=== PATIENT | female | born 1965 | race Caucasian/White ===

== ENCOUNTER 2016-11-28 12:21 | Inpatient (IN) | payer BC, OTHER ==
[~2016-11-28] VITALS: Ht 170.2 cm; Wt 152.0 kg
[~2016-11-28 12:21] MED LIST: CIPR500T PO; CIPROFLOXACIN HCL PO; HYDR-2766 PO; HYDR12.58 PO; HYDR50TA6 PO; IBUP200T43 PO; METR500T PO; ONDA4TAB10 SL; PARO10TA57 PO; PARO20TA99 PO
--- NOTE | 2016-11-28 12:39 | ED.ADGEN ---
Past History Past Medical History: Depression, GERD, Hypertension, Kidney Infection Past Surgical History: No Surgical History Smoking: Non-smoker Alcohol Use: None Drug Use: None Adult General Chief Complaint Chief Complaint Vomiting, Fever, R lower leg rash, swelling and then today Chest pain HPI HPI Patient is a 51 year old F who presents with Monday night after a walk started to have chills and fever. Took ASA and water then later vomiting 5-6 times, fever Monday too and 1 episode of diarrhea this AM Pt states then this AM noticed shortness of air and "twinge" in L chest. Pain would last 2 min on and off and gone now was 4-5/10 but 0/10 now. Then notices swelling redness R leg, no cough, no abdominal pain, admits to feeling lightheaded Review of Systems Review of Systems Constitutional: yes F/C Eyes: Denies change in visual acuity, redness, or eye pain HENT: Denies nasal congestion or sore throat Respiratory: Denies cough but has been shortness of breath Cardiovascular: chest pain "twinge" GI: Denies abdominal pain, yes vomiting and diarrhea : Denies dysuria or hematuria Musculoskeletal: R lower extremity redness and swelling, rash Neurologic: Denies headache, focal weakness or sensory changes [] Current Medications Current Medications Current Medications Medications (Trade) Dose Ordered Sig/Sonia Start Time Stop Time Status Last Admin Dose Admin Iohexol (Omnipaque 300 Mg/ml) 75 ml 1X ONCE 11/28/16 14:15 11/28/16 14:16 DC 11/28/16 14:35 75 ML Potassium Chloride (Klor-Con) 40 meq 1X ONCE 11/28/16 14:20 11/28/16 14:21 DC 11/28/16 14:20 40 MEQ Sodium Chloride 1,000 ml @ 1,000 mls/hr 1X ONCE 11/28/16 13:15 11/28/16 14:14 DC 11/28/16 13:15 1,000 MLS/HR Vancomycin HCl 1.5 gm/Sodium Chloride 500 ml @ 250 mls/hr 1X ONCE 11/28/16 16:30 11/28/16 18:29 DC 11/28/16 16:30 250 MLS/HR Allergies Allergies Allergies Coded Allergies Type Severity Reaction Last Updated Verified No Known Drug Allergies 12/23/14 No Physical Exam Physical Exam Constitutional: Well developed, well nourished, no acute distress, non-toxic appearance. Obese HENT: Normocephalic, atraumatic, bilateral external ears normal, oropharynx moist, no oral exudates, nose normal. Eyes: PERR EOMI, conjunctiva normal, no discharge Neck: Normal range of motion, no tenderness, supple, no stridor. Cardiovascular:Heart rate regular rhythm, no murmur Lungs & Thorax: Bilateral breath sounds clear to auscultation Abdomen: Bowel sounds normal, soft, no tenderness, no masses, no pulsatile masses. Skin: R lower leg erythema ant and post, with lateral area healing abrasions, neurovascular intact and tenderness to palpation, moderate swelling Back: No tenderness, no CVA tenderness Extremities: No tenderness, no cyanosis, no clubbing, ROM intact, no edema. Neurologic: Alert and oriented X 3, normal motor function, normal sensory function, no focal deficits noted. Current Patient Data Vital Signs Vital Signs Date Time Temp Pulse Resp B/P (MAP) Pulse Ox O2 Delivery O2 Flow Rate FiO2 11/28/16 16:08 88 13 132/75 (94) 96 11/28/16 12:21 98.1 Room Air Lab Results Laboratory Tests Test 11/28/16 13:02 White Blood Count 8.7 x10^3/uL (4.0-11.0) Red Blood Count 5.54 x10^6/uL (3.50-5.40) H Hemoglobin 13.7 g/dL (12.0-15.5) Hematocrit 41.9 % (36.0-47.0) Mean Corpuscular Volume 76 fL (79-100) L Mean Corpuscular Hemoglobin 25 pg (25-35) Mean Corpuscular Hemoglobin Concent 33 g/dL (31-37) Red Cell Distribution Width 17.7 % (11.5-14.5) H Platelet Count 283 x10^3/uL (140-400) Neutrophils (%) (Auto) 67 % (31-73) Lymphocytes (%) (Auto) 21 % (24-48) L Monocytes (%) (Auto) 11 % (0-9) H Eosinophils (%) (Auto) 0 % (0-3) Basophils (%) (Auto) 1 % (0-3) Neutrophils # (Auto) 5.8 x10^3uL (1.8-7.7) Lymphocytes # (Auto) 1.8 x10^3/uL (1.0-4.8) Monocytes # (Auto) 1.0 x10^3/uL (0.0-1.1) Eosinophils # (Auto) 0.0 x10^3/uL (0.0-0.7) Basophils # (Auto) 0.1 x10^3/uL (0.0-0.2) D-Dimer ([place]) 2.58 mg/L (0.00-0.50) H Sodium Level 137 mmol/L (136-145) Potassium Level 2.7 mmol/L (3.5-5.1) *L Chloride Level 100 mmol/L (98-107) Carbon Dioxide Level 29 mmol/L (21-32) Anion Gap 8 (6-14) Blood Urea Nitrogen 13 mg/dL (7-20) Creatinine 0.9 mg/dL (0.6-1.0) Estimated GFR (Cockcroft-Gault) 65.8 BUN/Creatinine Ratio 14 (6-20) Glucose Level 125 mg/dL (70-99) H Lactic Acid Level 1.9 mmol/L (0.4-2.0) Calcium Level 8.7 mg/dL (8.5-10.1) Total Bilirubin 0.3 mg/dL (0.2-1.0) Aspartate Amino Transferase (AST) 16 U/L (15-37) Alanine Aminotransferase (ALT) 12 U/L (14-59) L Alkaline Phosphatase 71 U/L (46-116) Creatine Kinase 128 U/L (26-192) Creatine Kinase MB (Mass) 0.6 ng/mL (0.0-3.6) Creatine Kinase MB Relative Index 0.5 % (0-4) Troponin I Quantitative < 0.017 ng/mL (0-0.055) WY-Ovv-S-Type Natriuretic Peptide 86 pg/mL (0-124) Total Protein 9.0 g/dL (6.4-8.2) H Albumin 3.0 g/dL (3.4-5.0) L Albumin/Globulin Ratio 0.5 (1.0-1.7) L Lipase 140 U/L (73-393) EKG EKG EKG [address] T WAVE CHANGE, NO STEMI, NO ACUTE ISCHEMIA EKG [address] T WAVE ABNORMALITY NO STEMI[] Radiology/Procedures Radiology/Procedures PATIENT: MAGGIE LAZARO ACCOUNT: [id number] : 1965 LOCATION: ER AGE: 51 SEX: F EXAM STATUS: REG ER ORD. PHYSICIAN: MARIA TERESA KAMARA MD REASON: leg pain swelling, elevated Ddimer PROCEDURE: VENOUS LOWER EXT BILATERAL Exam performed: Bilateral lower extremity venous Doppler. Clinical Indication: Elevated d-dimer Date of Service:11/28/16 Comparison : None available Discussion: Multiple longitudinal and transverse high resolution real-time images of the venous system of bilateral lower extremity were obtained with color and Doppler sampling and spectral analysis. The common femoral, superficial femoral, popliteal and proximal calf veins are all patent and demonstrate normal flow and compressibility. Normal respiratory phasicity and augmentation is present. Note is made of a 3.1 cm right groin lymph node Impression: Normal color duplex ultrasound of the venous system of bilateral lower extremity. DICTATED AND SIGNED BY: THAD FOY MD DATE: 11/28/16 1722 CC: RALPH CHOI MD; MARIA TERESA KAMARA MD ~ PATIENT: MAGGIE LAZAOR ACCOUNT: [id number] : 1965 LOCATION: ER AGE: 51 SEX: F EXAM STATUS: REG ER ORD. PHYSICIAN: MARIA TERESA KAMARA MD REASON: chest pain, dyspnea, elevated ddimer r/o PE PROCEDURE: CT ANGIOGRAPHY CHEST Indication: Chest pain, dyspnea and elevated d-dimer. Axial imaging through the chest was performed after the administration of intravenous contrast and utilizing the CT angiography protocol. Multiplanar, 3-D and MIP reformations were also performed. No prior studies are available for comparison. Evaluation of the pulmonary arterial system is without evidence of thromboembolism. No filling defects are seen. The thoracic aorta is normal caliber. No dissection is identified. No pericardial or pleural fluid is identified. Parenchymal evaluation demonstrates some minimal linear scarring or atelectasis in the bases. No infiltrates or masses are seen. The upper abdomen demonstrates fatty infiltration of the liver. Impression: 1. No evidence of pulmonary embolism or thoracic aortic dissection. 2. Fatty infiltration of the liver. PQRS Compliance Statement: One or more of the following individualized dose reduction techniques were utilized for this examination: 1. Automated exposure control 2. Adjustment of the mA and/or kV according to patient size 3. Use of iterative reconstruction technique DICTATED AND SIGNED BY: ANDRZEJ FERNANDO MD DATE: 11/28/16 1444 CC: RALPH CHOI MD; MARIA TERESA KAMARA MD ~ PATIENT: MAGGIE LAZARO ACCOUNT: [id number] : 1965 LOCATION: ER AGE: 51 SEX: F EXAM STATUS: REG ER ORD. PHYSICIAN: MARIA TERESA KAMARA MD REASON: dyspnea PROCEDURE: CHEST AP ONLY Indication: Shortness of air. Time of exam 1303 hours. Correlation is made with prior chest from 12/23/2014. FINDINGS: The heart size is normal. The lungs are clear. No pleural effusion or pneumothorax is identified. The pulmonary vascularity is normal. IMPRESSION: No acute abnormality detected. DICTATED AND SIGNED BY: ANDRZEJ FERNANDO MD DATE: 11/28/16 1318 CC: RALPH CHOI MD; MARIA TERESA KAMARA MD ~ [] Course & Med Decision Making Course & Med Decision Making Pertinent Labs and Imaging studies reviewed. (See chart for details) pT WITH LOWER LEG CELLULITIS AND CHEST PAIN ELEVATED DDIMER CTA==NO PE AND VENOUS DUPLEX NO DVT EKG STABLE AND CARDIAC RISK FACTORS WILL ADMIT FOR CHEST PAIN AND LOWER LEG CELLULITIS STARTED ON iv VANCOMYCIN CALLED HOSPITALIST AND ADMITTED TO MEDICAL SERVICE Final Impression Final Impression 1.CHEST PAIN 2.LOWER EXTREMITY CELLULITIS[] Problems: Dragon Disclaimer Dragon Disclaimer This electronic medical record was generated, in whole or in part, using a voice recognition dictation system. MARIA TERESA KAMARA MD November 28, 2016 12:39
[2016-11-28] MEDS ORDERED: IV NORMAL SALINE 1,000ML 1,000 ML IV ONE (13:15)
[2016-11-28 13:18] LABS: BASO # 0.1 x10^3/uL (0.0-0.2); BASO % 1 % (0-3); EOS % 0 % (0-3); HEMATOCRIT 41.9 % (36.0-47.0); HEMOGLOBIN 13.7 g/dL (12.0-15.5); LYMPH # 1.8 x10^3/uL (1.0-4.8); LYMPH % 21 % (24-48); MEAN CORPUSCULAR HEMOGLOBIN 25 pg (25-35); MEAN CORPUSCULAR HGB CONC 33 g/dL (31-37); MEAN CORPUSCULAR VOLUME 76 fL (79-100); MONO % 11 % (0-9); NEUT # 5.8 x10^3uL (1.8-7.7); NEUT % 67 % (31-73); PLATELET COUNT 283 x10^3/uL (140-400); RED BLOOD COUNT 5.54 x10^6/uL (3.50-5.40); RED CELL DISTRIBUTION WIDTH 17.7 % (11.5-14.5); WHITE BLOOD COUNT 8.7 x10^3/uL (4.0-11.0)
--- NOTE | 2016-11-28 13:21 | RAD ---
Indication: Shortness of air. Time of exam 1303 hours. Correlation is made with prior chest from 12/23/2014. FINDINGS: The heart size is normal. The lungs are clear. No pleural effusion or pneumothorax is identified. The pulmonary vascularity is normal. IMPRESSION: No acute abnormality detected.
--- NOTE | 2016-11-28 13:22 | EKG ---
[address] [address] Test Date: 2016-11-28 Test Time: 13:11:56 Pat Name: MAGGIE LAZARO Department: Room: Gender: F Clock Smith: ADONIS : 1965 Requested By: MARIA TERESA KAMARA Order Number: [id number] Reading MD: Hitesh Dhillon Measurements Intervals [place] Rate: 103 P: 120 AR: 124 QRS: 56 QRSD: 90 T: 34 QT: 348 QTc: 458 Interpretive Statements SINUS TACHYCARDIA Electronically Signed On 12-05-2016 8:57:54 CDT by Hitesh Dhillon
[2016-11-28 13:39] LABS: ALBUMIN/GLOBULIN RATIO 0.5 (1.0-1.7); CALCIUM 8.7 mg/dL (8.5-10.1); CREATININE 0.9 mg/dL (0.6-1.0); GFR 65.8; TOTAL BILIRUBIN 0.3 mg/dL (0.2-1.0)
[2016-11-28 13:42] LABS: POTASSIUM 2.7 mmol/L (3.5-5.1)
[2016-11-28] MEDS ORDERED: IOHEXOL 300 MG/ML 75 ML VIAL. IV ONE (14:15)
[2016-11-28] MEDS ORDERED: POTASSIUM CHLORIDE 20 MEQ TABLET.ER. PO ONE (14:20)
--- NOTE | 2016-11-28 14:51 | RAD ---
Indication: Chest pain, dyspnea and elevated d-dimer. Axial imaging through the chest was performed after the administration of intravenous contrast and utilizing the CT angiography protocol. Multiplanar, 3-D and MIP reformations were also performed. No prior studies are available for comparison. Evaluation of the pulmonary arterial system is without evidence of thromboembolism. No filling defects are seen. The thoracic aorta is normal caliber. No dissection is identified. No pericardial or pleural fluid is identified. Parenchymal evaluation demonstrates some minimal linear scarring or atelectasis in the bases. No infiltrates or masses are seen. The upper abdomen demonstrates fatty infiltration of the liver. Impression: 1. No evidence of pulmonary embolism or thoracic aortic dissection. 2. Fatty infiltration of the liver. PQRS Compliance Statement: One or more of the following individualized dose reduction techniques were utilized for this examination: 1. Automated exposure control 2. Adjustment of the mA and/or kV according to patient size 3. Use of iterative reconstruction technique
[2016-11-28] MEDS ORDERED: VANCOMYCIN 1.5 GM in IV NORMAL SALINE 500ML 500 ML IV ONE (16:30)
--- NOTE | 2016-11-28 17:25 | RAD ---
Exam performed: Bilateral lower extremity venous Doppler. Clinical Indication: Elevated d-dimer Date of Service:11/28/16 Comparison : None available Discussion: Multiple longitudinal and transverse high resolution real-time images of the venous system of bilateral lower extremity were obtained with color and Doppler sampling and spectral analysis. The common femoral, superficial femoral, popliteal and proximal calf veins are all patent and demonstrate normal flow and compressibility. Normal respiratory phasicity and augmentation is present. Note is made of a 3.1 cm right groin lymph node Impression: Normal color duplex ultrasound of the venous system of bilateral lower extremity.
[2016-11-28 22:14] VITALS: BP 131/86
[2016-11-28] MEDS: VANCOMYCIN PER PHARMACY MC PRN (22:17)
[2016-11-28] MEDS: ZOLPIDEM 5 MG TABLET. PO PRN (22:29)
[2016-11-28] MEDS ORDERED: ENOXAPARIN 40 MG/0.4 ML DISP.SYRIN. SQ SCH (22:30)
[2016-11-28] MEDS: POTASSIUM CHLORIDE 20 MEQ TABLET.ER. PO SCH (22:30)
[2016-11-28 22:31] VITALS: BP 131/86
[2016-11-28] MEDS ORDERED: FAMO-63 PO (23:19)
[2016-11-28] MEDS ORDERED: HYDR12.58 PO (23:19)
[2016-11-29] MEDS: VANCOMYCIN 2 GM in IV NORMAL SALINE 500ML 500 ML IV SCH ×2 (03:27→16:06)
[2016-11-29 04:17] LABS: BASO % 1 % (0-3); EOS # 0.1 x10^3/uL (0.0-0.7); EOS % 1 % (0-3); HEMATOCRIT 38.6 % (36.0-47.0); HEMOGLOBIN 12.4 g/dL (12.0-15.5); LYMPH # 2.1 x10^3/uL (1.0-4.8); LYMPH % 31 % (24-48); MEAN CORPUSCULAR HEMOGLOBIN 24 pg (25-35); MEAN CORPUSCULAR HGB CONC 32 g/dL (31-37); MEAN CORPUSCULAR VOLUME 76 fL (79-100); MONO # 0.6 x10^3/uL (0.0-1.1); MONO % 9 % (0-9); NEUT # 3.9 x10^3uL (1.8-7.7); NEUT % 57 % (31-73); PLATELET COUNT 274 x10^3/uL (140-400); RED BLOOD COUNT 5.08 x10^6/uL (3.50-5.40); RED CELL DISTRIBUTION WIDTH 17.3 % (11.5-14.5); WHITE BLOOD COUNT 6.8 x10^3/uL (4.0-11.0)
[2016-11-29 04:40] LABS: ALBUMIN 2.6 g/dL (3.4-5.0); ALBUMIN/GLOBULIN RATIO 0.5 (1.0-1.7); CALCIUM 8.3 mg/dL (8.5-10.1); CREATININE 0.8 mg/dL (0.6-1.0); GFR 75.3; POTASSIUM 3.3 mmol/L (3.5-5.1); TOTAL BILIRUBIN 0.3 mg/dL (0.2-1.0); TOTAL PROTEIN 7.9 g/dL (6.4-8.2)
[2016-11-29 05:10] VITALS: BP 113/76
[2016-11-29] MEDS: POTASSIUM CHLORIDE 20 MEQ TABLET.ER. PO SCH ×2 (08:15→20:59)
--- NOTE | 2016-11-29 10:06 | PDOC2 ---
DONNA LANG RN HEART 11/29/16 1006: CONSULT Date of Admission DATE: 11/29/16 TIME: 10:05 Reason for Consult: cp Problem List Problems Medical Problems: (1) Cellulitis of lower leg Status: Acute (2) Chest pain Status: Acute History of Present Illness Ms Le is a 51 year old female without significant medical history that presents with complaints of chest pain. She reports that she was working in the heat and began to have chest pain in her left upper chest. She describes a shooting type pain that lasted about 10 minutes and was accompanied by diaphoresis, shortness of breath and nausea. She denies any prior symptoms and has been pain free since admission. She denies other complaints and denies problems with her functional capacity. Past Medical History depression, hypertension, diverticulitis, GERD, pyelonephritis Past Surgical History: Tonsillectomy Family History CAD, hypertension, diabetes mellitus Social History non smoker, no significant ETOH, no illicit drugs. works for [employer] in [place]. Current Medications Current Medications Sodium Chloride 1,000 ml @ 1,000 mls/hr 1X ONCE IV Last administered on 13:15; Start 11/28/16 at 13:15; Stop 11/28/16 at 14:14; Status DC Potassium Chloride (Klor-Con) 40 meq 1X ONCE PO Last administered on 11/28/16 14:20; Start 11/28/16 at 14:20; Stop 11/28/16 at 14:21; Status DC Iohexol (Omnipaque 300 Mg/ml) 75 ml 1X ONCE IV Last administered on 11/28/16 14:35; Start 11/28/16 at 14:15; Stop 11/28/16 at 14:16; Status DC Vancomycin HCl 1.5 gm/Sodium Chloride 500 ml @ 250 mls/hr 1X ONCE IV Last administered on 11/28/16 16:30; Start 11/28/16 at 16:30; Stop 11/28/16 at 18:29; Status DC Vancomycin HCl (Vanco Per Pharmacy) 1 each PRN DAILY PRN MC SEE COMMENTS Last administered on 11/28/16 22:17; Start 11/28/16 at 21:30 Enoxaparin Sodium (Lovenox) 40 mg Q24H SQ Last administered on 11/28/16 22:30; Start 11/28/16 at 22:30 Potassium Chloride (Klor-Con) 20 meq BID PO Last administered on 11/29/16 08:15 ; Start 11/28/16 at 22:15 Zolpidem Tartrate (Ambien) 5 mg PRN QHS PRN PO INSOMNIA Last administered on 22:29; Start 11/28/16 at 21:30 Vancomycin HCl 2 gm/Sodium Chloride 500 ml @ 250 mls/hr Q12H IV Last administered on 11/29/16 03:27; Start 11/29/16 at 04:00 Vancomycin HCl 1 each 1X ONCE MC ; Start 11/30/16 at 03:30; Stop 11/30/16 at 03 :31 Famotidine (Pepcid) 20 mg BID PO ; Start 11/29/16 at 10:00 Hydrochlorothiazide (Microzide) 12.5 mg DAILY PO ; Start 11/29/16 at 10:00 Potassium Chloride (Micro-K) 10 meq DAILYWBKFT PO ; Start 11/29/16 at 10:00 Active Scripts Active Reported Pepcid (Famotidine) 20 Mg Tablet 20 Mg PO BID Hydrochlorothiazide Tablet (Hydrochlorothiazide) 12.5 Mg Tablet 12.5 Mg PO DAILY Allergies: Coded Allergies: No Known Drug Allergies (Unverified , 12/23/14) Review of System as per HPI General: Alert, Oriented X3, Cooperative, No acute distress HEENT: Atraumatic, EOMI, Mucous membr. moist/pink Lungs: Clear to auscultation, Normal air movement Heart: Regular rate, Normal S1, Normal S2, Other (no obvious murmurs, no gallops, clicks or rubs) Abdomen: Normal bowel sounds, Soft, No tenderness Extremities: No clubbing, No cyanosis, Normal pulses, Other (+1 edema) Neuro: Normal speech, Strength at 5/5 X4 ext Psych/Mental Status: Mental status NL, Mood NL VITALS Vital Signs Date Time Temp Pulse Resp B/P (MAP) Pulse Ox O2 Delivery O2 Flow Rate FiO2 11/29/16 08:00 Room Air 11/29/16 05:10 98.2 81 20 113/76 (88) 93 Labs Laboratory Tests Test 11/28/16 13:02 11/28/16 21:41 5/9/17 03:40 White Blood Count 8.7 x10^3/uL (4.0-11.0) 6.8 x10^3/uL (4.0-11.0) Red Blood Count 5.54 x10^6/uL (3.50-5.40) 5.08 x10^6/uL (3.50-5.40) Hemoglobin 13.7 g/dL (12.0-15.5) 12.4 g/dL (12.0-15.5) Hematocrit 41.9 % (36.0-47.0) 38.6 % (36.0-47.0) Mean Corpuscular Volume 76 fL (79-100) 76 fL (79-100) Mean Corpuscular Hemoglobin 25 pg (25-35) 24 pg (25-35) Mean Corpuscular Hemoglobin Concent 33 g/dL (31-37) 32 g/dL (31-37) Red Cell Distribution Width 17.7 % (11.5-14.5) 17.3 % (11.5-14.5) Platelet Count 283 x10^3/uL (140-400) 274 x10^3/uL (140-400) Neutrophils (%) (Auto) 67 % (31-73) 57 % (31-73) Lymphocytes (%) (Auto) 21 % (24-48) 31 % (24-48) Monocytes (%) (Auto) 11 % (0-9) 9 % (0-9) Eosinophils (%) (Auto) 0 % (0-3) 1 % (0-3) Basophils (%) (Auto) 1 % (0-3) 1 % (0-3) Neutrophils # (Auto) 5.8 x10^3uL (1.8-7.7) 3.9 x10^3uL (1.8-7.7) Lymphocytes # (Auto) 1.8 x10^3/uL (1.0-4.8) 2.1 x10^3/uL (1.0-4.8) Monocytes # (Auto) 1.0 x10^3/uL (0.0-1.1) 0.6 x10^3/uL (0.0-1.1) Eosinophils # (Auto) 0.0 x10^3/uL (0.0-0.7) 0.1 x10^3/uL (0.0-0.7) Basophils # (Auto) 0.1 x10^3/uL (0.0-0.2) 0.0 x10^3/uL (0.0-0.2) D-Dimer ([place]) 2.58 mg/L (0.00-0.50) Sodium Level 137 mmol/L (136-145) 139 mmol/L (136-145) Potassium Level 2.7 mmol/L (3.5-5.1) 3.3 mmol/L (3.5-5.1) Chloride Level 100 mmol/L (98-107) 104 mmol/L (98-107) Carbon Dioxide Level 29 mmol/L (21-32) 25 mmol/L (21-32) Anion Gap 8 (6-14) 10 (6-14) Blood Urea Nitrogen 13 mg/dL (7-20) 12 mg/dL (7-20) Creatinine 0.9 mg/dL (0.6-1.0) 0.8 mg/dL (0.6-1.0) Estimated GFR (Cockcroft-Gault) 65.8 75.3 BUN/Creatinine Ratio 14 (6-20) 15 (6-20) Glucose Level 125 mg/dL (70-99) 115 mg/dL (70-99) Lactic Acid Level 1.9 mmol/L (0.4-2.0) Calcium Level 8.7 mg/dL (8.5-10.1) 8.3 mg/dL (8.5-10.1) Total Bilirubin 0.3 mg/dL (0.2-1.0) 0.3 mg/dL (0.2-1.0) Aspartate Amino Transf (AST/SGOT) 16 U/L (15-37) 16 U/L (15-37) Alanine Aminotransferase (ALT/SGPT) 12 U/L (14-59) 12 U/L (14-59) Alkaline Phosphatase 71 U/L (46-116) 61 U/L (46-116) Creatine Kinase 128 U/L (26-192) Creatine Kinase MB (Mass) 0.6 ng/mL (0.0-3.6) Creatine Kinase MB Relative Index 0.5 % (0-4) Troponin I Quantitative < 0.017 ng/mL (0-0.055) < 0.017 ng/mL (0-0.055) < 0.017 ng/mL (0-0.055) KO-Kle-P-Type Natriuretic Peptide 86 pg/mL (0-124) Total Protein 9.0 g/dL (6.4-8.2) 7.9 g/dL (6.4-8.2) Albumin 3.0 g/dL (3.4-5.0) 2.6 g/dL (3.4-5.0) Albumin/Globulin Ratio 0.5 (1.0-1.7) 0.5 (1.0-1.7) Lipase 140 U/L (73-393) Images EKG - sinus rhythm, delayed R progression, non specific t abn. Lower extremity US - Impression: Normal color duplex ultrasound of the venous system of bilateral lower extremity. CT- Impression: 1. No evidence of pulmonary embolism or thoracic aortic dissection. 2. Fatty infiltration of the liver. CXR - IMPRESSION: No acute abnormality detected. Assessment/Plan Chest pain - WA ruled out. Will check echocardiogram. If no acute abnormalities could discharge from CV standpoint and have MPI as an outpatient. Hypertension - controlled. Hypokalemia - replaced, per PCP + D dimer - CT neg for PE, Negative DVT sono. Problems: JORGE FUNEZ MD 11/29/16 1345: CONSULT Allergies: Coded Allergies: No Known Drug Allergies (Unverified , 12/23/14) Assessment/Plan Patient seen and examined. Agree with [employer]ICATION[employer] MANAGER's assessment and plan. CP with atypical features. WA ruled out. We will obtain 2D echo to assess LV function and rule out wall motion abnormalities Thank you for your consultation Problems: DONNA LANG APRN November 29, 2016 10:06 JORGE FUNEZ MD November 29, 2016 13:45
[2016-11-29 10:19] VITALS: BP 148/79
[2016-11-29] MEDS: POTASSIUM CHLORIDE 10 MEQ CAPSULE.ER. PO SCH (10:24)
[2016-11-29] MEDS: hydroCHLOROthiazide 12.5 MG CAPSULE PO SCH (10:24)
[2016-11-29] MEDS: FAMOTIDINE 20 MG TABLET PO SCH ×2 (10:25→20:59)
--- NOTE | 2016-11-29 14:32 | CARD ---
APPROVED REPORT EXAM: Two-dimensional and M-mode echocardiogram with Doppler and color Doppler. Other Information Quality : GoodHR: 88bpm Rhythm : NSR INDICATION Chest Pain RISK FACTORS Obesity LEFT VENTRICLE The left ventricle is normal size. There is normal left ventricular wall thickness. The left ventricu lar systolic function is normal. The Ejection Fraction is 60-65%. There is normal LV segmental wall m otion. Transmitral Doppler flow pattern is Grade I-abnormal relaxation pattern. RIGHT VENTRICLE The right ventricle is normal size. There is normal right ventricular wall thickness. The right ventr icular systolic function is normal. ATRIA The left atrium size is normal. The right atrium size is normal. The interatrial septum is intact wit h no evidence for an atrial septal defect or patent foramen ovale as noted on 2-D or Doppler imaging. AORTIC VALVE The aortic valve is not well visualized but appears to be mildly thickened and opens well. Doppler an d Color Flow revealed no significant aortic regurgitation. There is no significant aortic valvular st enosis. MITRAL VALVE There is no evidence of mitral valve prolapse. There is no mitral valve stenosis. Doppler and Color F low revealed no mitral valve regurgitation noted. TRICUSPID VALVE Doppler and Color Flow revealed trace tricuspid valve regurgitation. There is no tricuspid valve sten osis. PULMONIC VALVE Doppler and Color Flow revealed trace pulmonic valvular regurgitation. There is no pulmonic valvular stenosis. GREAT VESSELS The aortic root is normal in size. The ascending aorta is normal in size. The pulmonary artery is nor mal. The IVC is normal in size and collapses >50% with inspiration. PERICARDIAL EFFUSION There is no evidence of significant pericardial effusion. Critical Notification Critical Value: No <Conclusion> The left ventricular systolic function is normal. The Ejection Fraction is 60-65%. There is normal LV segmental wall motion. Transmitral Doppler flow pattern is Grade I-abnormal relaxation pattern. Doppler and Color Flow revealed trace tricuspid valve regurgitation. There is no evidence of significant pericardial effusion.
--- NOTE | 2016-11-29 15:05 | RAD ---
Indication: PICC line placement. Time of exam 1453 hours. Correlation is made with prior study from 1 day earlier. Right upper extremity PICC line has the tip overlying the upper right atrium. No pneumothorax is identified. The lungs are clear. Impression: PICC line placement, as described.
[2016-11-29 15:21] VITALS: BP 129/82
[2016-11-29 18:44] VITALS: BP 144/86
[2016-11-29] MEDS: ENOXAPARIN ** NOTE DOSE ** SYRINGE SQ SCH (20:59)
[2016-11-29] MEDS: ZOLPIDEM 5 MG TABLET. PO PRN (22:22)
--- NOTE | 2016-11-30 00:56 | HP ---
ADMIT DATE: 11/28/2016 HISTORY OF PRESENT ILLNESS: A 51-year-old female came in through the Emergency Room. The patient with heavy infection to her right lower leg. For last 2-3 days, the patient has been having fever and chills. She related this infection to her right lower leg, ____ home. She also developed some nausea, vomiting, diarrhea, and also had some chest discomfort as well, which was substernal twinge in her chest. As a result of all this, the patient was seen in the Emergency Room and was admitted to the hospital for several reasons and for cellulitis to the right lower leg, which took pretty much the entire tibia area as well as her chest pain as well as some of her nausea, vomiting, ____ as well. PAST MEDICAL HISTORY: Depression, GERD, hypertension, multiple kidney infections. She has had a history of hypertension, diverticulitis, pyelonephritis. SOCIAL HISTORY: The patient denies smoking, alcohol, or drug use. FAMILY HISTORY: Unremarkable. PAST SURGICAL HISTORY: She has had a tonsillectomy. She has also had a history of MRSA. FAMILY HISTORY: Cardiovascular disease in father and mother as well as hypertension and diabetes. ALLERGIES: No known drug allergies. HOME MEDICATIONS: Pepcid 20 mg a day, hydrochlorothiazide 12.5 mg daily. REVIEW OF SYSTEMS: The patient denies any headaches, visual changes, blurred vision, double vision. Does have this chest twinging. Denies shortness of breath, did have fever and chills; however, ____. The patient denies any abdominal pain presently. Did have some nausea and vomiting. Otherwise, unremarkable. PHYSICAL EXAMINATION: GENERAL: This is a very pleasant white female in no apparent distress. VITAL SIGNS: Blood pressure initially 150/90, respiratory rate 20, pulse 110, afebrile. HEENT: The patient's head was atraumatic, normocephalic. Eyes: PERRLA without jaundice. Mouth and throat were normal. NECK: Supple. LUNGS: Clear to auscultation. CARDIOVASCULAR: Regular sinus rhythm. ABDOMEN: Protuberant, soft, nontender. The right lower leg is markedly erythematous. EXTREMITIES: It is noted from just below the knee to above the ankle area approximately [address] the right lower leg, tenderness, warmth, and ____. Pulses noted distally. NEUROLOGIC: Alert and oriented x 3. LABORATORY DATA: The patient's white count 8, hemoglobin 13 and hematocrit 41. Chemistries demonstrate very low potassium of 2.7 as well as a BUN and creatinine 13 and 0.9, blood sugar of 125. Lactic acid was unremarkable. Cardiac enzymes were unremarkable. Albumin 3.0. Blood sugar 125. The patient's D-dimer was elevated at 2.58 and MRSA scan was negative. IMPRESSION: 1. Cellulitis to the right lower leg. 2. Hyperglycemia. 3. Chest pain. 4. Risk factors for heart disease include family history, history of hypertension. PLAN: The patient will be admitted, placed on IV vancomycin. Cardiac evaluation and echocardiogram, and further consultation with the controls operator molded goods. RALPH CHOI MD DR: WILLARD/mu JOB#: [id number] / [id number]
[2016-11-30] MEDS: VANCOMYCIN 2 GM in IV NORMAL SALINE 500ML 500 ML IV SCH ×2 (04:20→13:46)
[2016-11-30 04:24] LABS: VANC TR 13.8 mcg/mL (10.0-20.0)
[2016-11-30 05:04] VITALS: BP 131/84
[2016-11-30] MEDS: VANCOMYCIN PER PHARMACY MC PRN (07:36)
[2016-11-30] MEDS: POTASSIUM CHLORIDE 10 MEQ CAPSULE.ER. PO SCH (08:00)
[2016-11-30] MEDS: POTASSIUM CHLORIDE 20 MEQ TABLET.ER. PO SCH (09:21)
[2016-11-30] MEDS: ENOXAPARIN ** NOTE DOSE ** SYRINGE SQ SCH (09:21)
[2016-11-30] MEDS: FAMOTIDINE 20 MG TABLET PO SCH (09:21)
[2016-11-30] MEDS: hydroCHLOROthiazide 12.5 MG CAPSULE PO SCH (09:21)
[2016-11-30 10:40] VITALS: BP 124/85
--- NOTE | 2016-11-30 10:52 | PDOC ---
PROGRESS NOTES Diagnosis Problem Problems Medical Problems: (1) Cellulitis of lower leg Status: Acute (2) Chest pain Status: Acute Assessment Problems Medical Problems: (1) Cellulitis of lower leg Status: Acute (2) Chest pain Status: Acute Chest pain - DE ruled out. Echo with normal LVEF and wall motion. Outpatient follow up and MPI if reoccurrence. Hypertension - controlled. Hypokalemia - replaced, per PCP + D dimer - CT neg for PE, Negative DVT sono. Problems: Subjective no further chest discomfort, palpitations, dyspnea. would like to go home. Objective Vital Signs Date Time Temp Pulse Resp B/P (MAP) Pulse Ox O2 Delivery O2 Flow Rate FiO2 11/30/16 10:40 97.4 84 20 124/85 (98) 94 Room Air Intake and Output 11/30/16 07:00 Intake Total 1890.55 ml Balance 1890.55 ml Intake Oral 1340 ml IV Total 550.55 ml # Voids 4 Abdomen: Normal bowel sounds, Soft, No tenderness Heart: Regular rate, Normal S1, Normal S2, Other (no gallops, clicks or rubs, no significant murmurs) Extremities: No cyanosis, Normal pulses General: Alert, Oriented X3, Cooperative, No acute distress HEENT: Atraumatic, EOMI, Mucous membr. moist/pink Lungs: Clear to auscultation, Normal air movement Neuro: Normal speech, Strength at 5/5 X4 ext Psych/Mental Status: Mental status NL, Mood NL Review of Relevant I have reviewed the following items zoie (where applicable) has been applied. Labs Laboratory Tests Test 11/28/16 13:02 11/28/16 21:41 11/28/16 22:00 11/29/16 03:40 White Blood Count 8.7 x10^3/uL (4.0-11.0) 6.8 x10^3/uL (4.0-11.0) Red Blood Count 5.54 x10^6/uL (3.50-5.40) 5.08 x10^6/uL (3.50-5.40) Hemoglobin 13.7 g/dL (12.0-15.5) 12.4 g/dL (12.0-15.5) Hematocrit 41.9 % (36.0-47.0) 38.6 % (36.0-47.0) Mean Corpuscular Volume 76 fL (79-100) 76 fL (79-100) Mean Corpuscular Hemoglobin 25 pg (25-35) 24 pg (25-35) Mean Corpuscular Hemoglobin Concent 33 g/dL (31-37) 32 g/dL (31-37) Red Cell Distribution Width 17.7 % (11.5-14.5) 17.3 % (11.5-14.5) Platelet Count 283 x10^3/uL (140-400) 274 x10^3/uL (140-400) Neutrophils (%) (Auto) 67 % (31-73) 57 % (31-73) Lymphocytes (%) (Auto) 21 % (24-48) 31 % (24-48) Monocytes (%) (Auto) 11 % (0-9) 9 % (0-9) Eosinophils (%) (Auto) 0 % (0-3) 1 % (0-3) Basophils (%) (Auto) 1 % (0-3) 1 % (0-3) Neutrophils # (Auto) 5.8 x10^3uL (1.8-7.7) 3.9 x10^3uL (1.8-7.7) Lymphocytes # (Auto) 1.8 x10^3/uL (1.0-4.8) 2.1 x10^3/uL (1.0-4.8) Monocytes # (Auto) 1.0 x10^3/uL (0.0-1.1) 0.6 x10^3/uL (0.0-1.1) Eosinophils # (Auto) 0.0 x10^3/uL (0.0-0.7) 0.1 x10^3/uL (0.0-0.7) Basophils # (Auto) 0.1 x10^3/uL (0.0-0.2) 0.0 x10^3/uL (0.0-0.2) D-Dimer ([place]) 2.58 mg/L (0.00-0.50) Sodium Level 137 mmol/L (136-145) 139 mmol/L (136-145) Potassium Level 2.7 mmol/L (3.5-5.1) 3.3 mmol/L (3.5-5.1) Chloride Level 100 mmol/L (98-107) 104 mmol/L (98-107) Carbon Dioxide Level 29 mmol/L (21-32) 25 mmol/L (21-32) Anion Gap 8 (6-14) 10 (6-14) Blood Urea Nitrogen 13 mg/dL (7-20) 12 mg/dL (7-20) Creatinine 0.9 mg/dL (0.6-1.0) 0.8 mg/dL (0.6-1.0) Estimated GFR (Cockcroft-Gault) 65.8 75.3 BUN/Creatinine Ratio 14 (6-20) 15 (6-20) Glucose Level 125 mg/dL (70-99) 115 mg/dL (70-99) Lactic Acid Level 1.9 mmol/L (0.4-2.0) Calcium Level 8.7 mg/dL (8.5-10.1) 8.3 mg/dL (8.5-10.1) Total Bilirubin 0.3 mg/dL (0.2-1.0) 0.3 mg/dL (0.2-1.0) Aspartate Amino Transf (AST/SGOT) 16 U/L (15-37) 16 U/L (15-37) Alanine Aminotransferase (ALT/SGPT) 12 U/L (14-59) 12 U/L (14-59) Alkaline Phosphatase 71 U/L (46-116) 61 U/L (46-116) Creatine Kinase 128 U/L (26-192) Creatine Kinase MB (Mass) 0.6 ng/mL (0.0-3.6) Creatine Kinase MB Relative Index 0.5 % (0-4) Troponin I Quantitative < 0.017 ng/mL (0-0.055) < 0.017 ng/mL (0-0.055) < 0.017 ng/mL (0-0.055) LH-Bxv-G-Type Natriuretic Peptide 86 pg/mL (0-124) Total Protein 9.0 g/dL (6.4-8.2) 7.9 g/dL (6.4-8.2) Albumin 3.0 g/dL (3.4-5.0) 2.6 g/dL (3.4-5.0) Albumin/Globulin Ratio 0.5 (1.0-1.7) 0.5 (1.0-1.7) Lipase 140 U/L (73-393) Nasal Screen MRSA (PCR) Negative (Negative) Hemoglobin A1c 6.0 % (4.8-5.6) Test 11/30/16 03:35 Vancomycin Level Trough 13.8 mcg/mL (10.0-20.0) Vancomycin Last Dose Date 11/29/2016 Vancomycin Last Dose Time 1600 Microbiology 11/28/16 Blood Culture - Preliminary, Resulted NO GROWTH AFTER 1 DAY Medications Current Medications Sodium Chloride 1,000 ml @ 1,000 mls/hr 1X ONCE IV Last administered on 13:15; Start 11/28/16 at 13:15; Stop 11/28/16 at 14:14; Status DC Potassium Chloride (Klor-Con) 40 meq 1X ONCE PO Last administered on 11/28/16 14:20; Start 11/28/16 at 14:20; Stop 11/28/16 at 14:21; Status DC Iohexol (Omnipaque 300 Mg/ml) 75 ml 1X ONCE IV Last administered on 11/28/16 14:35; Start 11/28/16 at 14:15; Stop 11/28/16 at 14:16; Status DC Vancomycin HCl 1.5 gm/Sodium Chloride 500 ml @ 250 mls/hr 1X ONCE IV Last administered on 11/28/16 16:30; Start 11/28/16 at 16:30; Stop 11/28/16 at 18:29; Status DC Vancomycin HCl (Vanco Per Pharmacy) 1 each PRN DAILY PRN MC SEE COMMENTS Last administered on 11/30/16 07:36; Start 11/28/16 at 21:30 Enoxaparin Sodium (Lovenox) 40 mg Q24H SQ Last administered on 11/28/16 22:30; Start 11/28/16 at 22:30; Stop 11/29/16 at 16:21; Status DC Potassium Chloride (Klor-Con) 20 meq BID PO Last administered on 11/30/16 09: 21; Start 11/28/16 at 22:15 Zolpidem Tartrate (Ambien) 5 mg PRN QHS PRN PO INSOMNIA Last administered on 22:22; Start 11/28/16 at 21:30 Vancomycin HCl 2 gm/Sodium Chloride 500 ml @ 250 mls/hr Q12H IV Last administered on 11/30/16 04:20; Start 11/29/16 at 04:00 Vancomycin HCl 1 each 1X ONCE MC Last administered on 11/30/16 03:24; Start 11/30/16 at 03:30; Stop 11/30/16 at 03:31; Status DC Famotidine (Pepcid) 20 mg BID PO Last administered on 11/30/16 09:21; Start at 10:00 Hydrochlorothiazide (Microzide) 12.5 mg DAILY PO Last administered on 09:21; Start 11/29/16 at 10:00 Potassium Chloride (Micro-K) 10 meq DAILYWBKFT PO Last administered on 10:24; Start 11/29/16 at 10:00 Enoxaparin Sodium (Lovenox 60mg Syringe) 60 mg Q12HR SQ Last administered on 09:21; Start 11/29/16 at 21:00 Vancomycin HCl 1 each 1X ONCE MC ; Start 12/02/16 at 03:30; Stop 12/02/16 at 03 :31 Active Scripts Active Reported Pepcid (Famotidine) 20 Mg Tablet 20 Mg PO BID Hydrochlorothiazide Tablet (Hydrochlorothiazide) 12.5 Mg Tablet 12.5 Mg PO DAILY Vitals/I & O Vital Sign - Last 24 Hours 11/29/16 11/29/16 11/30/16 11/30/16 15:21 18:44 05:04 07:50 Temp 97.7 98.7 98.3 Pulse 84 94 80 Resp 20 20 18 B/P (MAP) 129/82 (98) 144/86 (105) 131/84 (100) Pulse Ox 98 96 94 O2 Delivery Room Air Room Air Room Air Room Air 11/30/16 10:40 Temp 97.4 Pulse 84 Resp 20 B/P (MAP) 124/85 (98) Pulse Ox 94 O2 Delivery Room Air Intake and Output 11/29/16 11/29/16 11/30/16 15:00 23:00 07:00 Intake Total 600 ml 1090.55 ml 200 ml Balance 600 ml 1090.55 ml 200 ml DONNA LANG CINDER [employer] OPERATOR November 30, 2016 10:52
[2016-11-30] MEDS ORDERED: POTA20TA4 PO (13:23)
[2016-11-30] MEDS ORDERED: VANC1PLA9 IV (13:26)
[2016-11-30 16:20] VITALS: BP 131/84
--- NOTE | 2016-11-30 22:30 | DS ---
DATE OF DISCHARGE: 11/30/2016 HOSPITAL COURSE: A 51-year-old female initially came in with severe fever and chills for the last 2-3 days prior to admission. She developed cellulitis to her right lower leg. She also developed some nausea, vomiting and diarrhea, which resolved pretty much easily but the patient did have cellulitis to her right lower leg. She also had extremely low potassium of 2.7. Clinically, she probably had SIRS going on and secondary to the cellulitis in her leg. The patient made good progress during the rest of her hospitalization and there were no complications during rest of her hospital stay. She did have a positive D-dimer, which turned out to be negative as far as V/Q scan goes. Her CTA was unremarkable. She had no evidence of pulmonary emboli. She had some mild atelectasis in her lungs. The patient's venous Dopplers were negative. She had a PICC line placed. She will continue with IV antibiotic as an outpatient. She did have a 3.1 cm right groin lymph node, otherwise normal venous Doppler that is probably related to the infection in the right leg. IMPRESSION: Cellulitis to the right lower leg, nausea, vomiting, lymphadenopathy, hyperglycemia, hypokalemia, [id number] protein malnutrition, elevated D-dimer, negative CTA and possible atelectasis. DISCHARGE RECOMMENDATIONS: The patient will continue to be monitored as an outpatient by pharmacy for the vancomycin, which will go for at least another week if not longer depending on results at the end of that 7 days. Otherwise, see MRAD, decrease activity, regular diet, rest the leg and she will return to clinic for followup in 7-10 days or sooner as needed. RALPH CHOI MD DR: WILLARD/mu JOB#: [id number] / [id number]
== END 2016-11-30 16:26 | disposition home or self-care (01) | DRG 603 ==
LOC: ER 12:21 → 1 SOUTH 18:53
PROVIDERS: ADMIT Family Medicine; ATTEND Family Medicine
DX: L03.115 Cellulitis of right lower limb (principal); E44.0 Moderate protein-calorie malnutrition; R65.10 Systemic inflammatory response syndrome (SIRS) of non-infectious origin without acute organ dysfunction; J98.11 Atelectasis; Z68.43 Body mass index [BMI] 50.0-59.9, adult; K21.9 Gastro-esophageal reflux disease without esophagitis; I10 Essential (primary) hypertension; E87.6 Hypokalemia; K76.0 Fatty (change of) liver, not elsewhere classified; F32.9 Major depressive disorder, single episode, unspecified; R11.2 Nausea with vomiting, unspecified; R19.7 Diarrhea, unspecified; R59.1 Generalized enlarged lymph nodes; R73.9 Hyperglycemia, unspecified; R07.89 Other chest pain; Z82.49 Family history of ischemic heart disease and other diseases of the circulatory system; Z83.3 Family history of diabetes mellitus; Z86.14 Personal history of Methicillin resistant Staphylococcus aureus infection
CPT/HCPCS: 36415; 36569; 71010; 71275; 80053; 80202; 82553; 83036; 83605; 83690; 83880; 84484; 85027; 85379; 87040; 87641; 93005; 93306; 93970; 96361; 96365; 96366; G0379; J1650; J3370; J7040; Q9967; 99285-25; J7030

== ENCOUNTER 2020-06-22 03:02 | Inpatient (IN) | payer OTHER ==
[~2020-06-22] VITALS: Ht 167.6 cm; Wt 131.5 kg
[~2020-06-22 03:02] MED LIST changes: +FAMO-63 PO; -HYDR-2766 PO; +HYDR-2769 PO; -IBUP200T43 PO; +IBUP200T44 PO; +POTA20TA4 PO; +VANC1PLA9 IV
--- NOTE | 2020-06-22 03:06 | PHYS DOC ---
Past History Past Medical History: Arthritis, Depression, DVT, GERD, Hypertension, Kidney Infection, MRSA, UTI Past Medical History MRSA, Chonic Lt Leg venous stasis and ulcer Past Surgical History: Tonsillectomy Smoking: Non-smoker Alcohol Use: None Drug Use: None General Adult HPI: HPI: ".. .I ve been sick last three or so days...fever, chills, ... I got this bad Rt. flank pain...and chest area pain.. nauseated.. 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 Patient has past medical history depression, GERD, hypertension, multiple urinary tract infections, hypertension, diverticulitis, pyelonephritis, cellulitis recurrent in left lower leg, venous stasis, MRSA, and morbid obesity. The pt.has had Flu vaccination this year. Pt. follows with Dr. Choi. Review of Systems: Review of Systems: Constitutional: Hx fever or chills Eyes: Denies change in visual acuity HENT: Denies nasal congestion or sore throat Respiratory: History of cough Cardiovascular: Right flank chest pain and edema GI: Right flank abdominal pain, nausea, : History dysuria Musculoskeletal: Right flank back pain or joint pain Integument: Left lower leg cellulitis and venous stasis Neurologic: Denies headache, focal weakness or sensory changes Endocrine: Denies polyuria or polydipsia Lymphatic: Denies swollen glands Psychiatric: Denies depression or anxiety Family History: Family History: Father mother had history of hypertension and diabetes and coronary artery disease. Current Medications: Current Meds: See nursing for home meds Allergies: Allergies: Allergies Coded Allergies Type Severity Reaction Last Updated Verified No Known Drug Allergies 12/23/14 No Physical Exam: PE: Constitutional: Marked acute distress, non-toxic appearance. [] HENT: Normocephalic, atraumatic, bilateral external ears normal, oropharynx moist, no oral exudates, nose normal. [] Eyes: PERRLA, EOMI, conjunctiva normal, no discharge. [] Neck: Normal range of motion, no tenderness, supple, no stridor. [] Cardiovascular: Tachycardic heart rate regular rhythm, no murmur [] bilateral ankle edema Lungs & Thorax: Bilateral breath sounds equal apex of basilar crackles and scattered wheezes on auscultation [] Abdomen: Bowel sounds normal, soft, right flank tenderness, no masses, no pulsatile masses. Morbid obesity Skin: Warm, dry, no erythema, no rash. Venous stasis changes. Left lower leg chronic ulcer Back: No tenderness, right CVA tenderness. Scar Extremities: No tenderness, no cyanosis, no clubbing, ROM intact, bilateral lower leg edema. [] Venous stasis. Left leg chronic ulcer. No psoas sign. Neurologic: Alert and oriented X 3, moves extremities on request, distal sensory, no focal deficits noted. [] Psychologic: Affect anxious, judgement normal, EKG: EKG: My interpretation EKG shows a sinus rhythm at 98 bpm. No findings acute morphology. [] Radiology/Procedures: Radiology/Procedures: [][address] [address] IMAGING REPORT Signed PATIENT: MAGGIE LAZARO AACCOUNT: [id number] : 1965 LOCATION: ER AGE: 55 SEX: F EXAM STATUS: REG ER ORD. PHYSICIAN: WILIAM REID MD REASON: dyspnea, abd. pain, Rt. flank pain, PROCEDURE: ACUTE ABDOMEN SERIES ACUTE ABDOMEN SERIES INDICATION: Reason: dyspnea, abd. pain, Rt. flank pain, / Spl. Instructions: / History: . COMPARISON STUDY: 12/23/2014. FINDINGS: Lungs: Normal lung volume. No pulmonary mass or consolidation. The tracheobronchial tree and hilar structures are normal. Pleura: No pleural effusion or pneumothorax. Heart and Mediastinum: The cardiomediastinal silhouette is normal. The great vessels of the thorax are normal. Abdomen: Nonobstructive bowel gas pattern. No free air. IMPRESSION: No focal airspace disease. Nonobstructive bowel gas pattern. Electronically signed by: Steve John MD (06/22/2020 4:11 AM) [facility] DICTATED AND SIGNED BY: STEVE JOHN MD DATE: 06/22/20 0411 CC: RALPH CHOI MD; WILIAM REID MD ~MTH0 0 Heart Score: HEART Score for Chest Pain: HEART Score for Chest Pain Response (Comments) Value History Slighlty/Non-Suspicious 0 ECG Normal 0 Age >45 - < 65 1 Risk Factors 1 or 2 Risk Factors 1 Troponin < Normal Limit 0 Total 2 Risk Factors: Risk Factors: DM, Current or recent (<one month) smoker, HTN, HLP, family history of CAD, obesity. Risk Scores: Score 0 - 3: 2.5% MACE over next 6 weeks - Discharge Home Score 4 - 6: 20.3% MACE over next 6 weeks - Admit for Clinical Observation Score 7 - 10: 72.7% MACE over next 6 weeks - Early Invasive Strategies Course & Med Decision Making: Course & Med Decision Making Pertinent Labs and Imaging studies reviewed. (See chart for details) Discussed presentation, testing and tx. plan with Dr. Choi. Impression: 1. Fever 2. Viral Syndrome 3. UTI 4. Cellulitis and venous stasis ulcer left lower leg 5. Hyponatremia 132 6. Elevated D-dimer 1.02 [] Dragon Disclaimer: Dragon Disclaimer: This electronic medical record was generated, in whole or in part, using a voice recognition dictation system. Departure Departure: Referrals: RALPH CHOI MD (PCP) Dragon Disclaimer This chart was dictated in whole or in part using Voice Recognition software in a busy, high-work load, and often noisy Emergency Department environment. It may contain unintended and wholly unrecognized errors or omissions. Dragon Disclaimer This chart was dictated in whole or in part using Voice Recognition software in a busy, high-work load, and often noisy Emergency Department environment. It may contain unintended and wholly unrecognized errors or omissions. WILIAM REID MD Jun 22, 2020 03:06
[2020-06-22] MEDS ORDERED: IV RINGERS SOLUTION,LACTATED 1,000 ML IV SCH (03:45)
--- NOTE | 2020-06-22 04:14 | RAD ---
ACUTE ABDOMEN SERIES INDICATION: Reason: dyspnea, abd. pain, Rt. flank pain, / Spl. Instructions: / History: . COMPARISON STUDY: 12/23/2014. FINDINGS: Lungs: Normal lung volume. No pulmonary mass or consolidation. The tracheobronchial tree and hilar structures are normal. Pleura: No pleural effusion or pneumothorax. Heart and Mediastinum: The cardiomediastinal silhouette is normal. The great vessels of the thorax are normal. Abdomen: Nonobstructive bowel gas pattern. No free air. IMPRESSION: No focal airspace disease. Nonobstructive bowel gas pattern. Electronically signed by: Krishna John MD (06/22/2020 4:11 AM) [facility]
[2020-06-22 04:29] LABS: BASO % 0 % (0-3); EOS % 0 % (0-3); HEMATOCRIT 44.9 % (36.0-47.0); HEMOGLOBIN 14.6 g/dL (12.0-15.5); LYMPH # 1.5 x10^3/uL (1.0-4.8); LYMPH % 20 % (24-48); MEAN CORPUSCULAR HEMOGLOBIN 27 pg (25-35); MEAN CORPUSCULAR HGB CONC 33 g/dL (31-37); MEAN CORPUSCULAR VOLUME 82 fL (79-100); MONO # 0.5 x10^3/uL (0.0-1.1); MONO % 6 % (0-9); NEUT # 5.6 x10^3uL (1.8-7.7); NEUT % 74 % (31-73); PLATELET COUNT 200 x10^3/uL (140-400); RED BLOOD COUNT 5.47 x10^6/uL (3.50-5.40); RED CELL DISTRIBUTION WIDTH 15.2 % (11.5-14.5); WHITE BLOOD COUNT 7.6 x10^3/uL (4.0-11.0)
[2020-06-22 04:41] LABS: BILIRUBIN,URINE NEG (NEG); CLARITY,URINE HAZY; COLOR,URINE YELLOW; GLUCOSE,URINE NEG (NEG)
[2020-06-22 04:42] LABS: BACTERIA,URINE MANY /HPF (0-FEW); NITRITE,URINE POS (NEG); SQUAMOUS EPITHELIAL CELL,UR MOD /LPF; UROBILINOGEN,URINE 0.2 mg/dL (0.2 mg/dL)
[2020-06-22 04:44] LABS: CALCIUM 8.1 mg/dL (8.5-10.1); CREATININE 0.9 mg/dL (0.6-1.0); GFR 64.8; POTASSIUM 3.4 mmol/L (3.5-5.1)
[2020-06-22 04:45] LABS: BARBITURATES NEG (NEG); BENZODIAZEPINES NEG (NEG); CANNABINOIDS POS (NEG); COCAINE NEG (NEG); METHADONE NEG (NEG); OPIATES NEG (NEG); PHENCYCLIDINE NEG (NEG)
[2020-06-22] MEDS ORDERED: KETOROLAC 30 MG/ML VIAL. IVP ONE (04:45)
[2020-06-22 04:49] LABS: ALBUMIN 3.3 g/dL (3.4-5.0); DIRECT BILIRUBIN 0.1 mg/dL (0.0-0.2); MAGNESIUM 1.8 mg/dL (1.8-2.4); TOTAL BILIRUBIN 0.3 mg/dL (0.2-1.0); TOTAL PROTEIN 8.8 g/dL (6.4-8.2)
[2020-06-22 04:52] LABS: AMPHETAMINE/METHAMPHETAMINE NEG (NEG)
[2020-06-22] MEDS ORDERED: IV NORMAL SALINE 50ML 50 ML ONE (04:59)
[2020-06-22] MEDS ORDERED: cefTRIAXone SODIUM 1 GM VIAL ONE (04:59)
[2020-06-22] MEDS ORDERED: ONDANSETRON PF 4 MG/2 ML VIAL. IVP PRN (05:15)
--- NOTE | 2020-06-22 05:28 | EKG ---
[facility] ED [facility] [address] [place] [id number] Test Date: 2020-06-22 Test Time: 03:44:42 Pat Name: MAGGIE LAZRAO Department: Room: Gender: F Mold Carpenter: : 1965 Requested By: WILIAM REID Order Number: [id number] Reading MD: Jose Iglesias Measurements Intervals [place] Rate: 98 P: 33 CO: 142 QRS: 0 QRSD: 84 T: 23 QT: 354 QTc: 454 Interpretive Statements SINUS RHYTHM LEFTWARD AXIS Electronically Signed On 06-23-2020 10:24:14 PHONOGRAPH MECHANIC by Jose Iglesias
[2020-06-22 07:13] VITALS: BP 111/88
[2020-06-22] MEDS ORDERED: IPRATRPIUM/ALBUTEROL 0.5/2.5MG 3 ML NEBU. NEB SCH (08:00)
[2020-06-22] MEDS ORDERED: APIXABAN 5 MG TABLET. PO SCH (09:00)
[2020-06-22] MEDS ORDERED: ALBUTEROL SULFATE 8GM INHALER. INH SCH (09:00)
[2020-06-22] MEDS ORDERED: ALBUTEROL SULFATE 8GM INHALER. INH PRN (10:00)
[2020-06-22 10:52] VITALS: BP 117/80
[2020-06-22] MEDS: POTASSIUM CHLORIDE 20 MEQ TABLET.ER. PO SCH (11:08)
[2020-06-22] MEDS: FAMOTIDINE 20 MG TABLET PO SCH ×2 (11:09→21:00)
[2020-06-22] MEDS: APIXABAN 5 MG TABLET. PO SCH ×2 (11:09→21:00)
[2020-06-22] MEDS: hydroCHLOROthiazide 12.5 MG CAPSULE PO SCH (11:09)
[2020-06-22] MEDS: ACETAMINOPHEN 325 MG TABLET PO PRN ×2 (13:20→23:26)
[2020-06-22 14:40] VITALS: BP 115/84
[2020-06-22] MEDS ORDERED: HYDROcodone/APAP 5/325MG 1 TAB TABLET PO ONE (18:45)
[2020-06-22] MEDS ORDERED: TEMAZEPAM 7.5 MG CAPSULE PO PRN (19:15)
[2020-06-22] MEDS: IPRATROPIUM/ALBUTEROL 20/100mcg/INH INHALER. INH SCH (20:00)
[2020-06-22 20:15] VITALS: BP 98/62
[2020-06-22] MEDS ORDERED: VANCOMYCIN IV SCH (21:00)
[2020-06-22] MEDS: CLOBETASOL EMOLLIENT 0.05% TOPICAL CREAM 15GM TUBE. TP SCH (21:00)
[2020-06-22] MEDS ORDERED: TEMAZEPAM 7.5 MG CAPSULE PO SCH (21:00)
[2020-06-22] MEDS ORDERED: SOD CHLORIDE IV SCH (21:00)
[2020-06-22 23:37] VITALS: BP 92/69
--- NOTE | 2020-06-23 01:26 | HP ---
ADMIT DATE: 06/22/2020 HISTORY OF PRESENT ILLNESS: A 55-year-old female. She came in through the Emergency Room. She has been sick for 3-4 days prior to admission. She noted she had a bad right flank pain primarily in the chest area as well, nauseated, been running temps with cough. The patient does work here at the hospital. Complains of fever, chills, malaise, arthralgias, right flank pain, cough, dysuria. PAST MEDICAL HISTORY: Depression, GERD, hypertension, multiple urinary tract infections, obesity, tonsillectomy, diverticulitis, obesity, depression, surgeries as indicated, also had a history of MRSA in the past. FAMILY HISTORY: The mother having cardiovascular disease, diabetes and hypertension. Father likewise identical. ALLERGIES: The patient has no known allergies. HOME MEDICATIONS: Include that of possibly vancomycin for cellulitis of the legs, potassium chloride 20 mEq, hydrochlorothiazide 12.5, Pepcid 20 mg daily. SOCIAL HISTORY: The patient denies smoking, alcohol or drug use. Full code. REVIEW OF SYSTEMS: When first interviewed she said she is feeling better. Denies any headaches, visual changes, blurred vision, double vision. Denies chest pain or shortness of breath. Denied abdominal pain, denied any melena, hematochezia, hematemesis and neurologically intact. PHYSICAL EXAMINATION: GENERAL: This is a pleasant white female, in no apparent distress. VITAL SIGNS: Blood pressure 115/60, respiratory rate 18, pulse 100, temperature 101. HEENT: The patient is alert and oriented. Head was atraumatic, normocephalic. Eyes: PERRLA without jaundice. Mouth and throat were normal. NECK: Supple, without JVD, carotids or thyromegaly. LUNGS: Diminished, but basically clear. CARDIOVASCULAR: Regular sinus rhythm, somewhat tachycardic at times. EXTREMITIES: No clubbing, cyanosis, nor edema. NEUROLOGIC: The patient is alert and oriented x 3. Speech fluent, spontaneous, appropriate. Cranial nerves 2-12 grossly intact. LABORATORY DATA: The patient's labs demonstrated urine concentration of greater than 0.030 showing dehydration. White count 7, hemoglobin and hematocrit 14 and 44. Chemistries showed 132, 3.4, BUN and creatinine 11 and 0.9, blood sugar 120. Albumin low at 3.3. IMPRESSION: Possible cellulitis of the legs, primarily the right lower leg was somewhat inflamed and irritated, possible urinary tract infection, possible psoriasis of the left lower leg, morbid obesity, nausea, vomiting. The patient's COVID-19 is still pending. Urine culture is pending. The patient otherwise seems to be making fairly good progress overall. We will continue on IV antibiotic therapy and make further evaluation correcting electrolyte imbalances ____. RALPH CHOI MD DR: WILLARD/mu JOB#: [id number] / [id number]
[2020-06-23 06:42] VITALS: BP 122/83
[2020-06-23 06:58] LABS: BASO % 0 % (0-3); EOS % 0 % (0-3); HEMATOCRIT 42.3 % (36.0-47.0); HEMOGLOBIN 13.9 g/dL (12.0-15.5); LYMPH % 18 % (24-48); MEAN CORPUSCULAR HEMOGLOBIN 27 pg (25-35); MEAN CORPUSCULAR HGB CONC 33 g/dL (31-37); MEAN CORPUSCULAR VOLUME 82 fL (79-100); MONO # 0.4 x10^3/uL (0.0-1.1); MONO % 7 % (0-9); NEUT # 3.9 x10^3uL (1.8-7.7); NEUT % 75 % (31-73); PLATELET COUNT 184 x10^3/uL (140-400); RED BLOOD COUNT 5.18 x10^6/uL (3.50-5.40); RED CELL DISTRIBUTION WIDTH 15.4 % (11.5-14.5); WHITE BLOOD COUNT 5.3 x10^3/uL (4.0-11.0)
[2020-06-23] MEDS ORDERED: VANCOMYCIN 2 GM in IV NORMAL SALINE 500ML 500 ML IV ONE (08:00)
[2020-06-23] MEDS: IPRATROPIUM/ALBUTEROL 20/100mcg/INH INHALER. INH SCH ×4 (09:26→20:00)
[2020-06-23] MEDS: FAMOTIDINE 20 MG TABLET PO SCH (09:27)
[2020-06-23] MEDS: APIXABAN 5 MG TABLET. PO SCH ×2 (09:27→21:12)
[2020-06-23] MEDS: POTASSIUM CHLORIDE 20 MEQ TABLET.ER. PO SCH (09:27)
[2020-06-23] MEDS: hydroCHLOROthiazide 12.5 MG CAPSULE PO SCH (09:27)
[2020-06-23] MEDS: LACTOBACILLUS RHAMNOSUS GG 1 CAPSULE. PO SCH ×2 (09:27→21:11)
[2020-06-23] MEDS: CLOBETASOL EMOLLIENT 0.05% TOPICAL CREAM 15GM TUBE. TP SCH ×2 (09:28→21:00)
[2020-06-23] MEDS ORDERED: HYDROcodone/CHLORPHEN POLIS 5 ML SUS.ER.12H PO PRN (10:00)
[2020-06-23] MEDS ORDERED: HYDROcodone/CHLORPHEN POLIS 5 ML SUS.ER.12H PO ONE (10:00)
[2020-06-23] MEDS ORDERED: PROCHLORPERAZINE 10 MG/2 ML VIAL. IV PRN (10:00)
[2020-06-23] MEDS ORDERED: LORazepam 0.5 MG TABLET PO PRN (10:30)
[2020-06-23] MEDS ORDERED: IOHEXOL 350 MG/ML 100 ML VIAL. IV ONE (11:00)
[2020-06-23 11:30] VITALS: BP 123/79
[2020-06-23] MEDS: VANCOMYCIN PER PHARMACY MC PRN (11:33)
--- NOTE | 2020-06-23 12:30 | RAD ---
EXAM: 1. CT ANGIOGRAPHY OF THE CHEST WITH AND WITHOUT CONTRAST. 2. CT ABDOMEN/PELVIS WITHOUT CONTRAST. HISTORY: Shortness of breath, elevated d-dimer, flank pain. TECHNIQUE: Computed tomographic angiography of the chest was performed before and after the intravenous administration of iodinated contrast. 3-D maximum intensity projections were also performed. CT of the abdomen and pelvis was performed without intravenous contrast. One or more of the following individualized dose reduction techniques were utilized for this examination: 1. Automated exposure control. 2. Adjustment of the mA and/or kV according to patient size. 3. Use of iterative reconstruction technique. COMPARISON: 11/28/2016. FINDINGS: Bone windows reveal no suspicious lesions. Limited opacification of the pulmonary arterial tree lower sensitivity for small peripheral pulmonary emboli. None are seen. There is no aortic dissection or aneurysm. There are no pathologically enlarged mediastinal or axillary lymph nodes. There is no pleural or pericardial effusion. The heart is not enlarged. Multifocal groundglass infiltrates involving all lobes are consistent with atypical pneumonia. Hypoattenuation of the hepatic parenchyma indicates mild diffuse hepatic steatosis. A 17 x 15 mm nodule in the right adrenal gland is stable chronically and likely indicates a benign adenoma. The left adrenal gland is unremarkable. The pancreas, spleen and gallbladder are unremarkable without contrast. There are no suspicious renal lesions without contrast. There are no renal or ureteral calculi. There is no hydronephrosis. Wall thickening along the sigmoid colon is consistent with moderate diverticulitis. An adjacent fluid collection in the left hemipelvis measures 8.5 x 6.0 cm and is concerning for an abscess. There is no free perforation. The appendix is not inflamed. There is no small bowel obstruction. A moderate umbilical hernia contains only fat. IMPRESSION: 1. Mildly limited sensitivity. No pulmonary emboli are identified. 2. Multifocal groundglass infiltrates consistent with atypical pneumonia. 3. Moderate sigmoid diverticulitis. An adjacent 8.5 cm fluid collection is concerning for an abscess. 4. 17 mm stable right adrenal nodule consistent with a benign adenoma. 5. Moderate umbilical hernia containing only fat. 6. Mild diffuse hepatic steatosis. Electronically signed by: Brayan Randall MD (06/23/2020 12:27 PM) [facility]
[2020-06-23] MEDS ORDERED: AZITHROMYCIN 250 MG TABLET. PO ONE (13:00)
[2020-06-23 13:57] LABS: CALCIUM 8.5 mg/dL (8.5-10.1); CREATININE 0.8 mg/dL (0.6-1.0); GFR 74.2; POTASSIUM 3.6 mmol/L (3.5-5.1)
[2020-06-23] MEDS: HYDROcodone/APAP 5/325MG 1 TAB TABLET PO PRN ×2 (15:15→21:12)
[2020-06-23 15:27] VITALS: BP 129/76
[2020-06-23] MEDS: DEXAMETHASONE SOD PHOS 4 MG/ML VIAL. IVP SCH ×2 (17:14→23:57)
[2020-06-23] MEDS: CHOLECALCIFEROL (VITAMIN D3) 1,000 UNIT TABLET PO SCH (21:12)
[2020-06-23] MEDS: VANCOMYCIN 2 GM in IV NORMAL SALINE 500ML 500 ML IV SCH (21:15)
[2020-06-23 21:24] VITALS: BP 141/94
--- NOTE | 2020-06-24 01:57 | PN ---
DATE: SUBJECTIVE: A 55-year-old female, who was initially admitted for right flank pain, nauseated, running temperatures with a cough. The patient in turn COVID test came back positive today, initiated on azithromycin, Decadron and ProAir inhaler. She is also on vancomycin because of cellulitis in her lower extremities. OBJECTIVE: GENERAL: This is a pleasant white female. VITAL SIGNS: Blood pressure 130/76, respiratory rate 18, pulse 100, temperature 100.6. Her oxygen saturation has dropped from 100 down to 91% on room air. We will continue to monitor this, may need to get a repeat chest x-ray in the morning. Consider remdesivir if she desaturates any more than this meeting protocol. LUNGS: Diminished primarily in the bases. CARDIOVASCULAR: Regular sinus rhythm. ABDOMEN: Protuberant. EXTREMITIES: Showing the edema and the redness, but improved from where she was. LABORATORY DATA: The patient's white count 5.3, hemoglobin 13, hematocrit 42. Sodium, potassium, 137/3.6, BUN and creatinine 13 and 0.8. The patient's albumin is 3.3. IMPRESSION: COVID-19 pneumonia, cellulitis to the lower extremities, hyperglycemia, moderate protein malnutrition. PLAN: Continue plan as above. RALPH CHOI MD DR: WILLARD/mu JOB#: [id number] / [id number]
[2020-06-24] MEDS: DEXAMETHASONE SOD PHOS 4 MG/ML VIAL. IVP SCH ×4 (05:20→23:16)
[2020-06-24 05:37] LABS: BASO % 0 % (0-3); EOS % 0 % (0-3); HEMATOCRIT 41.5 % (36.0-47.0); HEMOGLOBIN 13.6 g/dL (12.0-15.5); LYMPH # 0.5 x10^3/uL (1.0-4.8); LYMPH % 14 % (24-48); MEAN CORPUSCULAR HEMOGLOBIN 27 pg (25-35); MEAN CORPUSCULAR HGB CONC 33 g/dL (31-37); MEAN CORPUSCULAR VOLUME 81 fL (79-100); MONO # 0.3 x10^3/uL (0.0-1.1); MONO % 7 % (0-9); NEUT # 2.8 x10^3uL (1.8-7.7); NEUT % 79 % (31-73); PLATELET COUNT 180 x10^3/uL (140-400); RED BLOOD COUNT 5.11 x10^6/uL (3.50-5.40); RED CELL DISTRIBUTION WIDTH 14.9 % (11.5-14.5); WHITE BLOOD COUNT 3.6 x10^3/uL (4.0-11.0)
[2020-06-24 05:49] LABS: CALCIUM 8.2 mg/dL (8.5-10.1); CREATININE 0.6 mg/dL (0.6-1.0); GFR 103.4; POTASSIUM 3.3 mmol/L (3.5-5.1)
[2020-06-24] MEDS: LACTOBACILLUS RHAMNOSUS GG 1 CAPSULE. PO SCH ×2 (08:20→21:09)
[2020-06-24] MEDS: hydroCHLOROthiazide 12.5 MG CAPSULE PO SCH (08:20)
[2020-06-24] MEDS: APIXABAN 5 MG TABLET. PO SCH ×2 (08:20→21:09)
[2020-06-24] MEDS: CHOLECALCIFEROL (VITAMIN D3) 1,000 UNIT TABLET PO SCH (08:20)
[2020-06-24] MEDS: POTASSIUM CHLORIDE 20 MEQ TABLET.ER. PO SCH (08:20)
[2020-06-24] MEDS: IPRATROPIUM/ALBUTEROL 20/100mcg/INH INHALER. INH SCH ×4 (08:21→20:00)
[2020-06-24] MEDS: VANCOMYCIN 2 GM in IV NORMAL SALINE 500ML 500 ML IV SCH ×2 (08:21→23:16)
[2020-06-24] MEDS: CLOBETASOL EMOLLIENT 0.05% TOPICAL CREAM 15GM TUBE. TP SCH ×2 (08:22→21:00)
[2020-06-24] MEDS ORDERED: AZITHROMYCIN 250 MG TABLET. PO SCH (09:00)
[2020-06-24 10:43] VITALS: BP 122/86
[2020-06-24 14:42] VITALS: BP 116/90
[2020-06-24 19:40] VITALS: BP 127/80
[2020-06-24] MEDS: HYDROcodone/APAP 5/325MG 1 TAB TABLET PO PRN (21:09)
[2020-06-24 22:38] LABS: VANC TR 8.1 mcg/mL (10.0-20.0)
[2020-06-25] MEDS: VANCOMYCIN PER PHARMACY MC PRN (03:10)
[2020-06-25 05:18] VITALS: BP 113/61
[2020-06-25] MEDS: DEXAMETHASONE SOD PHOS 4 MG/ML VIAL. IVP SCH (06:31)
[2020-06-25] MEDS ORDERED: VANCOMYCIN 2 GM in IV NORMAL SALINE 500ML 500 ML IV SCH (07:00)
[2020-06-25] MEDS ORDERED: ALBUTEROL SULFATE 8GM INHALER. INH PRN (08:45)
[2020-06-25] MEDS ORDERED: fentaNYL PF 250 MCG/5 ML VIAL IV PRN (08:45)
[2020-06-25] MEDS: APIXABAN 5 MG TABLET. PO SCH (09:00)
[2020-06-25] MEDS ORDERED: PROCHLORPERAZINE 10 MG/2 ML VIAL. IV PRN (09:00)
[2020-06-25] MEDS: POTASSIUM CHLORIDE 20 MEQ TABLET.ER. PO SCH (09:00)
[2020-06-25] MEDS ORDERED: DEXAMETHASONE SOD PHOS 4 MG/ML VIAL. IVP SCH (09:00)
[2020-06-25] MEDS: IPRATROPIUM/ALBUTEROL 20/100mcg/INH INHALER. INH SCH ×2 (10:21→13:00)
[2020-06-25] MEDS: LACTOBACILLUS RHAMNOSUS GG 1 CAPSULE. PO SCH (10:21)
[2020-06-25] MEDS: hydroCHLOROthiazide 12.5 MG CAPSULE PO SCH (10:22)
[2020-06-25] MEDS: CLOBETASOL EMOLLIENT 0.05% TOPICAL CREAM 15GM TUBE. TP SCH (10:23)
[2020-06-25] MEDS: CHOLECALCIFEROL (VITAMIN D3) 1,000 UNIT TABLET PO SCH (10:23)
--- NOTE | 2020-06-25 10:27 | RAD ---
EXAM: CT Chest, Abdomen, and Pelvis without IV contrast INDICATION: Reason: sever abd pain, short of breath, covid + / Spl. Instructions: / History: TECHNIQUE: Multi-detector row CT images were acquired from the thoracic inlet through the ischial tuberosities without the use of IV contrast. Sagittal and coronal images were acquired from the transaxial data. All CT scans performed at this facility utilize dose optimization techniques as appropriate to the exam, including the following: Automated exposure control and adjustment of the mA and/or KV according to patient size (this includes techniques or standardized protocols for targeted exams where dose is indication/reason for exam). ORAL CONTRAST: Not administered COMPARISON: Noncontrast abdomen and pelvis CT of 06/23/2020 FINDINGS: The absence of IV contrast limits evaluation of soft tissue pathology. CHEST: CARDIOVASCULAR: Unremarkable. No evidence of thoracic aortic aneurysm or intramural hematoma. Normal heart size and no pericardial effusion. MEDIASTINUM & LEONARDA: Borderline enlarged aortopulmonary window lymph nodes measuring 8 mm short axis diameter. No mass or bulky adenopathy. LUNGS: Patchy bilateral groundglass opacities in a pattern suspicious for atypical pneumonia. PLEURAL SPACE: No pleural effusions or pneumothorax. OSSEOUS & SOFT TISSUE: Unremarkable ABDOMEN/PELVIS: LIVER: Unremarkable BILIARY SYSTEM: Gallbladder is unremarkable. Bile ducts are not dilated. PANCREAS: Unremarkable SPLEEN: Unremarkable ADRENALS: Stable mild nodularity to the medial right adrenal gland. KIDNEYS & URETERS: Unremarkable BLADDER: Unremarkable REPRODUCTIVE ORGANS: The left ovary is obscured by inflammatory tissue at the left pelvic sidewall. GASTROINTESTINAL: No findings of bowel obstruction. The stomach and small bowel are unremarkable. The large bowel shows extensive diverticulosis most conspicuous in the rectosigmoid colon. The proximal rectosigmoid colon abuts a fluid collection that shows a little more pericolonic gas and density suggesting possible hemorrhage. The appendix is not well seen. MESENTERY/PERITONEUM/RETROPERITONEUM: There is no free intraperitoneal air. Left pelvic sidewall fluid collection is obscured by adjacent uterus measures approximately 6.3 x 5.9 x 5.6 cm and abuts the inflamed sigmoid colon. VASCULAR: Unremarkable LYMPH NODES: No adenopathy OSSEOUS & SOFT TISSUES: Fat-containing periumbilical hernia. IMPRESSION: Sigmoid diverticulitis with a probable pericolonic abscess now complicated by evidence of hemorrhage into the abscess, and new, free intraperitoneal air consistent with transmural perforation. Report telephoned to the inpatient floor where the patient's nurse took the report on behalf of Dr. Fuentes at 10:17 AM on 06/25/2020. Electronically signed by: Syeda Cantrell MD (06/25/2020 10:24 AM) [id number]
[2020-06-25] MEDS ORDERED: PIP/TAZO PER PHARMACY MC PRN (10:30)
[2020-06-25] MEDS ORDERED: PIPERACILLIN/TAZOBACTAM 3.375 GM in IV NORMAL SALINE 50ML 50 ML IV SCH (11:00)
[2020-06-25] MEDS ORDERED: CLINDAMYCIN 900MG PREMIX 50 ML IV SCH (11:00)
[2020-06-25 11:12] VITALS: BP 126/98
[2020-06-25 11:41] VITALS: BP 131/82
[2020-06-25] MEDS ORDERED: MEPERIDINE PF 50 MG/ML VIAL. IV PRN ×2 (13:00→13:15)
--- NOTE | 2020-06-25 19:57 | PN ---
DATE: SUBJECTIVE: A 55-year-old female in with COVID-19 pneumonia. She says she is feeling somewhat better this morning, breathing a little bit easier. Nausea has subsided. Temperature is staying down. OBJECTIVE: VITAL SIGNS: Blood pressure 127/80, respiratory rate 20, pulse 94, afebrile. GENERAL: The patient is alert and oriented. LUNGS: Diminished, but basically clearer than they have been. CARDIOVASCULAR: Regular sinus rhythm. ABDOMEN: Protuberant. EXTREMITIES: No clubbing, cyanosis. The patient's legs look somewhat less inflamed and the dry scaly skin on the lateral side of the lower left leg seems to be improving with clobetasol. IMPRESSION: COVID-19 pneumonia, cellulitis as well as eczema to the lower leg. PLAN: The patient continued with present drug regimen, which seems to be working for her very nicely. RALPH CHOI MD DR: WILLARD/mu JOB#: [id number] / [id number]
== END 2020-06-25 13:40 | disposition short-term general hospital (02) | DRG 177 ==
LOC: ER 03:02 → 1 SOUTH 05:37
PROVIDERS: ADMIT Family Medicine; ATTEND Family Medicine
DX: U07.1 COVID-19 (principal); J12.89 Other viral pneumonia; Z68.42 Body mass index [BMI] 45.0-49.9, adult; N39.0 Urinary tract infection, site not specified; L03.116 Cellulitis of left lower limb; L97.929 Non-pressure chronic ulcer of unspecified part of left lower leg with unspecified severity; E87.1 Hypo-osmolality and hyponatremia; L03.115 Cellulitis of right lower limb; E44.0 Moderate protein-calorie malnutrition; M19.90 Unspecified osteoarthritis, unspecified site; K21.9 Gastro-esophageal reflux disease without esophagitis; F32.9 Major depressive disorder, single episode, unspecified; Z87.440 Personal history of urinary (tract) infections; Z86.14 Personal history of Methicillin resistant Staphylococcus aureus infection; Z83.3 Family history of diabetes mellitus; Z82.49 Family history of ischemic heart disease and other diseases of the circulatory system; E66.01 Morbid (severe) obesity due to excess calories; L30.9 Dermatitis, unspecified; I10 Essential (primary) hypertension
CPT/HCPCS: 36415; 71250; 71275; 74022; 74176; 80048; 80076; 80202; 80307; 81001; 82550; 82947; 83605; 83690; 83735; 84443; 84484; 85025; 85379; 85610; 85730; 87077; 87086; 87186; 93005; 94640; 96361; 96365; 96375; 99285; J0456; J0696; J0780; J1100; J1885; J1956; J2175; J2543; J3010; J3370; J3490; J7040; J7120; J7613; Q9967; U0003

== ENCOUNTER → 2020-10-02 | Outpatient (CLI) | payer OTHER ==
[~2020-10-02] MED LIST changes: +ALBU2.5V8 IH; -CIPR500T PO; +CIPR500T2 PO; -HYDR50TA6 PO; +HYDR50TA9 PO; +LORA-254 PO; +MULT-245 PO
== END ==
LOC: LAB 10:00
PROVIDERS: ATTEND Nurse Anesthetist, Certified Registered
DX: Z01.812 Encounter for preprocedural laboratory examination (principal); Z93.3 Colostomy status; Z20.822 Contact with and (suspected) exposure to COVID-19
CPT/HCPCS: U0003

== ENCOUNTER → 2020-10-06 | Day surgery (SDC) | payer OTHER ==
[~2020-10-06] MED LIST changes: +IPRATRPIUM/ALBUTEROL 0.5/2.5MG 3 ML NEBU. NEB PRN; +IV RINGERS SOLUTION,LACTATED 1,000 ML IV SCH; +MIDAZOLAM HCL PF 2 MG/2 ML VIAL. IV ONE; +ONDANSETRON PF 4 MG/2 ML VIAL. IV PRN; +PROPOFOL 10,000 MCG/ML (20ML) VIAL IV ONE
[2020-10-06 13:30] VITALS: BP 126/82
== END | disposition home or self-care (01) ==
LOC: SURG 11:32
PROVIDERS: ATTEND Surgery
DX: R10.84 Generalized abdominal pain (principal); E78.5 Hyperlipidemia, unspecified; K57.30 Diverticulosis of large intestine without perforation or abscess without bleeding; R19.7 Diarrhea, unspecified; I10 Essential (primary) hypertension; F32.9 Major depressive disorder, single episode, unspecified; M19.90 Unspecified osteoarthritis, unspecified site; K21.9 Gastro-esophageal reflux disease without esophagitis; Z87.440 Personal history of urinary (tract) infections; Z86.14 Personal history of Methicillin resistant Staphylococcus aureus infection; Z79.899 Other long term (current) drug therapy; Z98.890 Other specified postprocedural states
CPT/HCPCS: 45378; J2704

== ENCOUNTER 2020-10-17 09:25 | Inpatient (IN) | payer OTHER ==
[~2020-10-17] VITALS: Ht 167.6 cm; Wt 125.0 kg
[~2020-10-17 09:25] MED LIST changes: -IPRATRPIUM/ALBUTEROL 0.5/2.5MG 3 ML NEBU. NEB PRN; -IV RINGERS SOLUTION,LACTATED 1,000 ML IV SCH; -MIDAZOLAM HCL PF 2 MG/2 ML VIAL. IV ONE; -ONDANSETRON PF 4 MG/2 ML VIAL. IV PRN; -PROPOFOL 10,000 MCG/ML (20ML) VIAL IV ONE
--- NOTE | 2020-10-17 09:35 | PHYS DOC ---
Past History Past Medical History: Arthritis, Depression, DVT, GERD, Hypertension, Kidney Infection, MRSA, UTI Past Surgical History: Tonsillectomy Smoking: Non-smoker Alcohol Use: None Drug Use: None General Adult HPI: HPI: 55-year-old female past medical history of hypertension, GERD, obesity, hyperlipidemia and complicated diverticulitis, presents to the ED with complaints of nausea, hot and cold flashes, and dizziness, stating " I have been constipated the last couple of days, my stomach was hurting and I knew I would have a bowel movement. Had a very large bowel movement and symptoms started afterwards." Reports history of diverticulitis with abscess, bowel resection colostomy in May [address] Veálsquez. Reports this was complicated with the "hole started closing," via stricture/narrowing of anastomosis site. Dr. Velásquez performed colonoscopy and opened the site two weeks ago. Reports some blood in stool (bright red) every since - no brisk or heavy bleeding, no associated exertional dyspnea. Currently complains of an upset stomach and nausea. Her last meal was last night around 6 PM. Reports history of Covid in June [id number], tested - August 132020. No associated chest pressure or tightness. Review of Systems: Review of Systems: Constitutional: Denies fever or chills Eyes: Denies change in visual acuity HENT: Denies nasal congestion or sore throat Respiratory: Denies cough or shortness of breath Cardiovascular: Denies chest pain or edema GI: Denies abdominal pain, nausea, vomiting, bloody stools or diarrhea : Denies dysuria Musculoskeletal: Denies back pain or joint pain Integument: Denies rash Neurologic: Denies headache, focal weakness or sensory changes Endocrine: Denies polyuria or polydipsia Lymphatic: Denies swollen glands Psychiatric: Denies depression or anxiety Allergies: Allergies: Allergies Coded Allergies Type Severity Reaction Last Updated Verified No Known Drug Allergies 06/22/20 No Physical Exam: PE: Constitutional: Uncomfortable but not toxic appearance, HENT: Normocephalic, atraumatic, very dry mucous membranes Eyes: EOMI, conjunctiva normal, no discharge. Neck: Normal range of motion, supple, Cardiovascular: S1/2 present, regular rhythm Lungs & Thorax: Speaking in full sentences, bilateral equal chest rise, no tachypnea or increased work of breathing Abdomen: soft, no tenderness, obese, reports epigastric abdominal tenderness, no rigidity or guarding, colostomy bag with scant brown/red stool-no active brisk bleeding Skin: Warm, dry, no erythema, no rash. [] Extremities: No tenderness, no cyanosis, Neurologic: Alert and oriented X 3, normal motor function, normal sensory function, no focal deficits noted. [] Psychologic: Affect normal, judgement normal, mood normal. [] EKG: EKG: Sinus rhythm at 73 bpm, left axis deviation, QTC prolonged 491, T wave inversion V2, no ST elevations or ST depressions, low voltage EKG nonpathological Q-wave lead I and aVL Radiology/Procedures: Radiology/Procedures: IMAGING REPORT Signed PATIENT: MAGGIE LAZARO AACCOUNT: [id number] : 1965 LOCATION: ER AGE: 55 SEX: F EXAM STATUS: REG ER ORD. PHYSICIAN: PERRY PARSON DO REASON: epigastric abd pain PROCEDURE: CT CHEST ABD PELVIS W/CONTRAST Study: CT chest, abdomen and pelvis with contrast INDICATION: Epigastric abdominal pain. COMPARISON: Most recently on 06/25/2020 TECHNIQUE: Helical CT imaging performed of the chest, abdomen and pelvis after the intravenous administration of contrast. Coronal and sagittal reformats were obtained. One or more of the following individualized dose reduction techniques were utilized for this examination: 1. Automated exposure control 2. Adjustment of the mA and/or kV according to patient size 3. Use of iterative reconstruction technique. FINDINGS: CT Chest: Patency of the visualized great vessels. No aortic aneurysm or dissection. Calcific coronary artery disease most notably involving the LAD. Heart size is within normal limits. No central pulmonary embolism. No mediastinal or hilar lymph nodes meeting pathologic criteria based on size. Within normal limits esophagus. No pericardial effusion. Mild groundglass infiltrates scattered throughout both lungs which are decreased in extent and density from the comparison. Small 3.5 mm nodule abutting the right minor fissure per Fleischner guidelines, no dedicated follow-up is needed unless otherwise clinically indicated. No pleural effusion or pneumothorax. Unremarkable partially imaged thyroid. No axillary adenopathy. No acute or aggressive osseous process. Scattered degenerative changes. CT Abdomen/Pelvis: Unchanged mild prominence of the liver. No newly seen focal parenchymal abnormality. No CT manifestations of acute cholecystitis. Nondilated biliary tree. Unremarkable pancreas. A right adrenal gland nodule on image 36 series 7 measures approximately 1.7 x 1.4 cm. In 2015 this nodule measured 1.7 x 1.2 cm. Minimal drying rack changer time is typical of a benign process. Smaller additional left adrenal gland nodule again measures up to 1.2 cm. No newly seen abnormality of the left adrenal gland. Mildly heterogeneous left renal parenchymal enhancement is favored artifactual. Millimetric nonobstructing intrarenal stone at the lower pole on the right. No complex cyst or mass. No hydronephrosis. Mildly distended urinary bladder. No wall thickening. Mild splenomegaly is unchanged. Similar configuration of the uterus. No newly seen adnexal mass. Interval sigmoidectomy with a left lower quadrant colostomy. The excluded rectum is unremarkable. Mild wall thickening of the colon extending to the colostomy site however at least in part related to underdistention. There is mild haziness of the pericolonic fat at a few centimeters proximal to the colostomy such as on image 61 series 7. The stomach is within normal limits. Nonobstructed small bowel. Mild scattered calcific atherosclerosis. Nonaneurysmal aorta. Patent central portal veins and superior mesenteric vein. A few reactive appearing mildly prominent lymph nodes at the upper abdomen. Scattered subcentimeter mesenteric lymph nodes not meeting pathologic criteria based on size. Inguinal and iliac chain lymph nodes are not significantly enlarged. Left paramidline supraumbilical fat-containing hernia. Inflammatory changes along the midline both at and extending above and below the umbilicus. Mildly edematous fat at the anterior aspect of the pelvis such as a rounded area of fat necrosis deep to the left rectus musculature, image 110 series 7. No well delineated subcutaneous fluid collection. No significant volume free fluid. No pneumoperitoneum. No acute or aggressive osseous process. Predominantly lower lumbar spondylosis with neural foraminal stenosis at L5-S1 more so than L4-L5. Central canal stenosis most notably at L3-L4 and L4-L5 appearing similar to the prior and not fully characterized by technique. IMPRESSION: CT Chest: 1. Scattered groundglass infiltrates throughout both lungs but less extensive and dense from the 06/25/2020 comparison. Though an active atypical infectious process is possible it is favored more likely that the findings represent residual infiltrates from a resolving pneumonia. 2. Additional chronic findings detailed in the body the report to include calcific coronary artery disease. CT Abdomen/Pelvis: 1. No acute abnormality in the epigastric region to explain the patient's symptoms. Notably there are no findings of cholecystitis or pancreatitis. 2. Interval sigmoidectomy with a left lower quadrant colostomy. Mild wall thickening of the colon leading up to the colostomy site and minimal reticulation of the pericolonic fat. A very mild colitis is possible or the findings could be residual from surgery. No bowel obstruction, pneumatosis or perforation. 3. Inflammatory changes of the subcutaneous tissues at as well as both above and below the umbilicus without a well delineated fluid collection. Again the findings could be related to surgery though cellulitis could appear similar. No drainable fluid collection. Recommend correlation for regional erythema to help differentiate. 4. Several additional chronic observations detailed in the body the report. Electronically signed by: VLADIMIR CAMERON MD (10/17/2020 11:46 AM) [id number] DICTATED AND SIGNED BY: VLADIMIR CAMERON MD DATE: 10/17/20 1127 CC: RALPH CHOI MD; PERRY PARSON DO ~MTH0 0 IMAGING REPORT Signed PATIENT: MAGGIE LAZARO AACCOUNT: [id number] : 1965 LOCATION: ER AGE: 55 SEX: F EXAM STATUS: REG ER ORD. PHYSICIAN: PERRY PARSON DO REASON: CHEST PAIN PROCEDURE: PORTABLE CHEST 1V Exam Date: 10/17/2020 9:37 AM XR CHEST 1V Indication: Reason: CHEST PAIN / Spl. Instructions: / History: Comparison: November 29, 2016 FINDINGS/ IMPRESSION: There are slightly increased markings at the periphery of the right midlung field and in the left upper lobe which may represent scarring and/or atelectasis. No pleural effusion or pneumothorax. The cardiac silhouette and pulmonary vasculature are within normal limits. Electronically signed by: Bjorn Callejas MD (10/17/2020 10:06 AM) [id number] DICTATED AND SIGNED BY: BJORN CALLEJAS MD DATE: 10/17/20 1005 CC: RALPH CHOI MD; PERRY PARSON DO ~MTH0 0 Heart Score: C/O Chest Pain: No Risk Factors: Risk Factors: DM, Current or recent (<one month) smoker, HTN, HLP, family history of CAD, obesity. Risk Scores: Score 0 - 3: 2.5% MACE over next 6 weeks - Discharge Home Score 4 - 6: 20.3% MACE over next 6 weeks - Admit for Clinical Observation Score 7 - 10: 72.7% MACE over next 6 weeks - Early Invasive Strategies Course & Med Decision Making: Course & Med Decision Making Pertinent Labs and Imaging studies reviewed. (See chart for details) Concern for intractable nausea and vomiting, failed p.o. challenge (multiple pts in ed today with N/V/D). UDS positive for THC-pt has a medical marjuana rx - will try Haldol, admit for IV fluids and further medical management. Patient stable at time of admission and agrees with this plan. I have spoken with the patient and/or caregivers. I have explained the patient's condition, diagnosis and treatment plan based on the information available to me at this time. I have answered the patient's and/or caregivers questions and answered any concerns. The patient and/or caregivers have as good an understanding of the patient's diagnosis, condition and treatment plan as can be expected at this point. The patient has been stabilized within the capability of the emergency department. The patient will be transported for further care and management or will be moved to an observation or inpatient service. I have communicated with the staff or medical practitioner taking over this patient's care. Fernando Disclaimer: Fernando Disclaimer: This electronic medical record was generated, in whole or in part, using a voice recognition dictation system. Departure Departure: Impression: Primary Impression: Intractable nausea and vomiting Additional Impression: Marijuana abuse Disposition: ADMITTED INPT THIS HOSP Admitting Physician: Ralph Choi Condition: STABLE Referrals: RALPH CHOI MD (PCP) PERRY PARSON DO Oct 17, 2020 09:35
[2020-10-17] MEDS ORDERED: ONDANSETRON PF 4 MG/2 ML VIAL. ONE (09:44)
[2020-10-17] MEDS ORDERED: ONDANSETRON PF 4 MG/2 ML VIAL. IVP ONE (09:45)
[2020-10-17] MEDS ORDERED: IV NORMAL SALINE 1,000ML 1,000 ML IV ONE (09:45)
[2020-10-17] MEDS ORDERED: FAMOTIDINE 20 MG/2 ML VIAL IVP ONE (10:00)
--- NOTE | 2020-10-17 10:08 | RAD ---
Exam Date: 10/17/2020 9:37 AM XR CHEST 1V Indication: Reason: CHEST PAIN / Spl. Instructions: / History: Comparison: November 29, 2016 FINDINGS/ IMPRESSION: There are slightly increased markings at the periphery of the right midlung field and in the left upp er lobe which may represent scarring and/or atelectasis. No pleural effusion or pneumothorax. The cardiac silhouette and pulmonary vasculature are within normal limits. Electronically signed by: Jovi Callejas MD (10/17/2020 10:06 AM) [id number]
[2020-10-17] MEDS ORDERED: IOHEXOL 300 MG/ML 75 ML VIAL. IV ONE (10:15)
[2020-10-17 10:18] LABS: BASO # 0.1 x10^3/uL (0.0-0.2); BASO % 1 % (0-3); EOS % 0 % (0-3); HEMATOCRIT 46.8 % (36.0-47.0); HEMOGLOBIN 14.9 g/dL (12.0-15.5); LYMPH # 0.9 x10^3/uL (1.0-4.8); LYMPH % 8 % (24-48); MEAN CORPUSCULAR HEMOGLOBIN 25 pg (25-35); MEAN CORPUSCULAR HGB CONC 32 g/dL (31-37); MEAN CORPUSCULAR VOLUME 80 fL (79-100); MONO # 0.7 x10^3/uL (0.0-1.1); MONO % 6 % (0-9); NEUT % 86 % (31-73); PLATELET COUNT 320 x10^3/uL (140-400); RED BLOOD COUNT 5.88 x10^6/uL (3.50-5.40); WHITE BLOOD COUNT 11.7 x10^3/uL (4.0-11.0)
[2020-10-17 10:27] LABS: CALCIUM 8.4 mg/dL (8.5-10.1); CREATININE 0.9 mg/dL (0.6-1.0); GFR 64.8; POTASSIUM 3.1 mmol/L (3.5-5.1)
[2020-10-17] MEDS ORDERED: CONTRAST GIVEN. MC PRN (10:30)
--- NOTE | 2020-10-17 10:38 | EKG ---
[facility] [address] [place] [id number] Test Date: 2020-10-17 Test Time: 09:29:12 Pat Name: MAGGIE LAZARO Department: Room: Gender: F [employer]: : 1965 Requested By: PERRY PARSON Order Number: [id number] Reading MD: Measurements Intervals [place] Rate: 73 P: 29 MA: 164 QRS: -4 QRSD: 82 T: 29 QT: 442 QTc: 491 Interpretive Statements SINUS RHYTHM LEFTWARD AXIS PROLONGED QT NO SPECIFIC ECG ABNORMALITIES RI6.02 No previous ECG available for comparison
[2020-10-17 10:41] LABS: ALBUMIN 3.2 g/dL (3.4-5.0); ALBUMIN/GLOBULIN RATIO 0.6 (1.0-1.7); MAGNESIUM 1.7 mg/dL (1.8-2.4); TOTAL BILIRUBIN 0.6 mg/dL (0.2-1.0); TOTAL PROTEIN 8.2 g/dL (6.4-8.2)
[2020-10-17] MEDS ORDERED: METOCLOPRAMIDE HCL 10 MG/2 ML VIAL. IVP ONE (10:45)
[2020-10-17] MEDS ORDERED: HYDROmorphone PF 1 MG/ML DISP.SYRIN IVP ONE (10:45)
--- NOTE | 2020-10-17 11:48 | RAD ---
Study: CT chest, abdomen and pelvis with contrast INDICATION: Epigastric abdominal pain. COMPARISON: Most recently on 06/25/2020 TECHNIQUE: Helical CT imaging performed of the chest, abdomen and pelvis after the intravenous admini stration of contrast. Coronal and sagittal reformats were obtained. One or more of the following individualized dose reduction techniques were utilized for this examinat ion: 1. Automated exposure control 2. Adjustment of the mA and/or kV according to patient size 3. Use of iterative reconstruction technique. FINDINGS: CT Chest: Patency of the visualized great vessels. No aortic aneurysm or dissection. Calcific coronary artery d isease most notably involving the LAD. Heart size is within normal limits. No central pulmonary embol ism. No mediastinal or hilar lymph nodes meeting pathologic criteria based on size. Within normal limits e sophagus. No pericardial effusion. Mild groundglass infiltrates scattered throughout both lungs which are decreased in extent and densit y from the comparison. Small 3.5 mm nodule abutting the right minor fissure per Fleischner guidelines , no dedicated follow-up is needed unless otherwise clinically indicated. No pleural effusion or pneu mothorax. Unremarkable partially imaged thyroid. No axillary adenopathy. No acute or aggressive osseous process . Scattered degenerative changes. CT Abdomen/Pelvis: Unchanged mild prominence of the liver. No newly seen focal parenchymal abnormality. No CT manifestat ions of acute cholecystitis. Nondilated biliary tree. Unremarkable pancreas. A right adrenal gland no dule on image 36 series 7 measures approximately 1.7 x 1.4 cm. In 2014 this nodule measured 1.7 x 1.2 cm. Minimal filler block inserter remover time is typical of a benign process. Smaller additional left adrenal gland n odule again measures up to 1.2 cm. No newly seen abnormality of the left adrenal gland. Mildly heterogeneous left renal parenchymal enhancement is favored artifactual. Millimetric nonobstru cting intrarenal stone at the lower pole on the right. No complex cyst or mass. No hydronephrosis. Mi ldly distended urinary bladder. No wall thickening. Mild splenomegaly is unchanged. Similar configuration of the uterus. No newly seen adnexal mass. Interval sigmoidectomy with a left lower quadrant colostomy. The excluded rectum is unremarkable. Mil d wall thickening of the colon extending to the colostomy site however at least in part related to un derdistention. There is mild haziness of the pericolonic fat at a few centimeters proximal to the col ostomy such as on image 61 series 7. The stomach is within normal limits. Nonobstructed small bowel. Mild scattered calcific atherosclerosis. Nonaneurysmal aorta. Patent central portal veins and superio r mesenteric vein. A few reactive appearing mildly prominent lymph nodes at the upper abdomen. Scatte red subcentimeter mesenteric lymph nodes not meeting pathologic criteria based on size. Inguinal and iliac chain lymph nodes are not significantly enlarged. Left paramidline supraumbilical fat-containing hernia. Inflammatory changes along the midline both at and extending above and below the umbilicus. Mildly edematous fat at the anterior aspect of the pelv is such as a rounded area of fat necrosis deep to the left rectus musculature, image 110 series 7. No well delineated subcutaneous fluid collection. No significant volume free fluid. No pneumoperitoneum . No acute or aggressive osseous process. Predominantly lower lumbar spondylosis with neural foraminal stenosis at L5-S1 more so than L4-L5. Central canal stenosis most notably at L3-L4 and L4-L5 appearin g similar to the prior and not fully characterized by technique. IMPRESSION: CT Chest: 1. Scattered groundglass infiltrates throughout both lungs but less extensive and dense from the 06/25/2020 comparison. Though an active atypical infectious process is possible it is favored more likely that the findings represent residual infiltrates from a resolving pneumonia. 2. Additional chronic findings detailed in the body the report to include calcific coronary artery d isease. CT Abdomen/Pelvis: 1. No acute abnormality in the epigastric region to explain the patient's symptoms. Notably there ar e no findings of cholecystitis or pancreatitis. 2. Interval sigmoidectomy with a left lower quadrant colostomy. Mild wall thickening of the colon le ading up to the colostomy site and minimal reticulation of the pericolonic fat. A very mild colitis i s possible or the findings could be residual from surgery. No bowel obstruction, pneumatosis or perfo ration. 3. Inflammatory changes of the subcutaneous tissues at as well as both above and below the umbilicus without a well delineated fluid collection. Again the findings could be related to surgery though ce llulitis could appear similar. No drainable fluid collection. Recommend correlation for regional eryt beth to help differentiate. 4. Several additional chronic observations detailed in the body the report. Electronically signed by: VLADIMIR CAMERON MD (10/17/2020 11:46 AM) [id number]
[2020-10-17] MEDS ORDERED: POTASSIUM CHLORIDE 20 MEQ TABLET.ER. PO ONE (14:15)
[2020-10-17] MEDS ORDERED: MAGNESIUM CHLORIDE ER 64 MG TABLET.ER PO SCH (14:15)
[2020-10-17 14:24] LABS: BARBITURATES NEG (NEG); BENZODIAZEPINES NEG (NEG); CANNABINOIDS POS (NEG); COCAINE NEG (NEG); METHADONE NEG (NEG); OPIATES POS (NEG); PHENCYCLIDINE NEG (NEG)
[2020-10-17 14:25] LABS: AMPHETAMINE/METHAMPHETAMINE NEG (NEG)
[2020-10-17 14:29] LABS: BACTERIA,URINE FEW /HPF (0-FEW); BILIRUBIN,URINE NEG (NEG); CLARITY,URINE HAZY; COLOR,URINE YELLOW; GLUCOSE,URINE NEG (NEG); NITRITE,URINE NEG (NEG); RBC,URINE OCC /HPF (0-2); SQUAMOUS EPITHELIAL CELL,UR OCC /LPF; UROBILINOGEN,URINE 0.2 mg/dL (0.2 mg/dL); WBC,URINE OCC /HPF (0-4)
[2020-10-17] MEDS ORDERED: ONDANSETRON PF 4 MG/2 ML VIAL. IVP PRN (15:30)
[2020-10-17] MEDS ORDERED: HALOPERIDOL LACT 5 MG/ML VIAL. IVP ONE (15:30)
[2020-10-17] MEDS ORDERED: PROCHLORPERAZINE 10 MG/2 ML VIAL. IV ONE (15:30)
[2020-10-17] MEDS: IV NORMAL SALINE 1,000ML 1,000 ML IV SCH (15:30)
--- NOTE | 2020-10-17 15:55 | NUR ---
PT ARRIVED TO UNIT VIA EMS. PTS VS ARE OBTAINED AND ARE STABLE. PT IS ORIENTED TO ROOM AND PROCEDURES. PT IS NPO FOR NOW. DR CHOI NOTIFIED OF ADMISSION.
[2020-10-17 16:28] VITALS: BP 168/99
[2020-10-17] MEDS ORDERED: LORA-254 PO (17:15)
[2020-10-17] MEDS ORDERED: LORazepam 1 MG TABLET PO PRN (18:15)
[2020-10-17] MEDS ORDERED: ONDANSETRON ODT 4 MG TAB.RAPDIS PO PRN (18:15)
[2020-10-17] MEDS ORDERED: HYDROmorphone PF 1 MG/ML DISP.SYRIN IVP PRN (18:15)
[2020-10-17 19:58] VITALS: BP 122/74
[2020-10-17] MEDS: FAMOTIDINE 20 MG TABLET PO SCH (22:18)
[2020-10-17] MEDS: LORazepam 1 MG TABLET PO SCH (22:18)
[2020-10-17 22:55] VITALS: BP 119/73
[2020-10-18 05:31] VITALS: BP 145/77
[2020-10-18] MEDS: FAMOTIDINE 20 MG TABLET PO SCH (08:41)
[2020-10-18] MEDS: LORazepam 1 MG TABLET PO SCH (08:42)
[2020-10-18] MEDS ORDERED: PARoxetine 20 MG TABLET PO SCH (09:00)
[2020-10-18] MEDS: IV NORMAL SALINE 1,000ML 1,000 ML IV SCH (09:10)
[2020-10-18 10:26] VITALS: BP 116/72
[2020-10-18] MEDS ORDERED: LORA-254 PO ×2 (11:15→12:09)
--- NOTE | 2020-10-18 22:50 | HP ---
ADMIT DATE: 10/17/2020 HISTORY OF PRESENT ILLNESS: A 55-year-old female who came into the Emergency Room with severe nausea, vomiting, and rectal bleeding. The patient recently had a colectomy secondary to an abscess, diverticulitis. The patient was unable to keep any food or water down. The patient had been tried with food and water in the Emergency Room and brought her right back up. She was admitted for further evaluation of her abdominal pain, her melena, her nausea and vomiting. A CT scan did demonstrate multiple changes secondary to her surgery, but other than that, the patient was admitted for hydration and further evaluation. PAST MEDICAL HISTORY: Tonsillectomy, colitis, diverticulitis, obstructive bowel disease, colostomy in 06/2020, COVID-19, bowel surgery, obesity, abdominal pain, depression, anxiety, and history of anemia. FAMILY HISTORY: Positive for stroke, hypertension and diabetes. ALLERGIES: No known allergies. MEDICATIONS: Reconciled in the chart. SOCIAL HISTORY: The patient denies smoking, alcohol or drug use. The patient is a full code. REVIEW OF SYSTEMS: The patient denies any headaches, visual changes, blurred vision, or double vision. Denies any melena, hematochezia, or hematemesis. The patient does have abdominal discomfort with nausea, vomiting and melena as noted. Otherwise, neurologically stable. PHYSICAL EXAMINATION: GENERAL: This is a pleasant white female in moderate amount of distress. VITAL SIGNS: Blood pressure 122/70, respiratory rate 18, pulse 100, afebrile, 97%. HEENT: The patient's head was atraumatic, normocephalic. Eyes: PERRLA without jaundice. Mouth and throat were normal. NECK: Supple. LUNGS: Clear. CARDIOVASCULAR: Regular sinus rhythm. ABDOMEN: Protuberant, soft. Colostomy is intact. Some erythema noted around the colostomy itself. EXTREMITIES: No clubbing, cyanosis. Trace edema. NEUROLOGIC: The patient is alert and oriented x 3. LABORATORY DATA: The patient's labs were reviewed. IMPRESSION: Abdominal pain with nausea, vomiting, possible gastroenteritis, and dehydration. PLAN: The patient is otherwise continued to be monitored, carefully given IV fluids, hydrated and make further evaluation per those results. RALPH CHOI MD DR: WILLARD/mu JOB#: [id number] / [id number]
== END 2020-10-18 12:15 | disposition home or self-care (01) | DRG 392 ==
LOC: ER 09:25 → 1 SOUTH 15:25 → ER 15:50
PROVIDERS: ADMIT Family Medicine; ATTEND Family Medicine
DX: K52.9 Noninfective gastroenteritis and colitis, unspecified (principal); E86.0 Dehydration; E78.5 Hyperlipidemia, unspecified; F12.10 Cannabis abuse, uncomplicated; I10 Essential (primary) hypertension; I25.10 Atherosclerotic heart disease of native coronary artery without angina pectoris; Z82.3 Family history of stroke; Z82.49 Family history of ischemic heart disease and other diseases of the circulatory system; Z83.3 Family history of diabetes mellitus; Z86.16 Personal history of COVID-19; Z90.49 Acquired absence of other specified parts of digestive tract; Z93.3 Colostomy status; E66.9 Obesity, unspecified; F32.9 Major depressive disorder, single episode, unspecified; F41.9 Anxiety disorder, unspecified; K21.9 Gastro-esophageal reflux disease without esophagitis; M19.90 Unspecified osteoarthritis, unspecified site; Z86.14 Personal history of Methicillin resistant Staphylococcus aureus infection
CPT/HCPCS: 36415; 71045; 71260; 74177; 80053; 80307; 81001; 83690; 83735; 83880; 84100; 84484; 85025; 85610; 85730; 93005; 96361; 96374; 96375; J0780; J1170; J1630; J2405; J2765; J3490; Q9967; 99285-25; J7030